=== PATIENT | male | born 1935 | race Caucasian/White ===

== ENCOUNTER → 2016-09-06 | Outpatient (CLI) | payer MEDICARE ==
[~2016-09-06] MED LIST: ADVICOR; AMOXICILLIN 8751 TAB PO; ANTIVERT 25MG25 MG PO; ASPI325T6 PO; ASPIR-LOW81 MG PO; ASPIRIN E.C. 8181 MG PO; ASTELIN137 MCG/AC NS; BETAPACE 80MG80 MG PO; BREO IH; BROVANA15 MCG/2 M IH; CLARITIN 1010 MG/TAB PO; CLEOCIN HCL300 MG PO; DIOVAN80 M1 PO; DOXYCYCLINE 10100 MG PO; DULERA1 AR1 IH; EPA FISH OIL1000 MG PO; FERROUS SU325 MG/TAB PO; IRON TABLETS325 MG PO; LASIX 40MG TABL40 MG PO; LEVAQUIN 750MG750 M1 PO; LIPOFLAVONOID1 GEL TP; LISINOPRIL5 MG PO; MECLIZINE25 MG PO; MURO-128 5% OP3.5 GM OP; NIACIN500 M3 PO; NORCO 325 MG-7.1 TAB PO; NORVASC 5MG5 MG/TAB PO; OMEPRAZOLE20 MG PO; OXYGEN IH; PREDNISONE20 MG PO; PRILOSEC 20MG20 MG PO; RANITIDINE HCL150 MG PO; RANITIDINE HYD150 MG PO; REFRESH 1 ML1 ML OU; REQUIP0.25 MG PO; ROXICODONE 55 MG/TAB PO; RT SPIRIVA18 MCG IH; SPIRIVA18 MCG IH; ST. JOSEPH81 M2 PO; SYSTANE LUBRICAN5 ML OU; VENTOLIN0.09 MG IH; ZANTAC 150MG T150 MG PO; ZESTRIL 5MG5 MG PO; ZETIA10 MG PO; ZOCOR 20MG20 MG PO; [UNRECOGNIZED DRUG - OTHER] PO
== END ==
LOC: COL.VAS 08-17 12:30
DX: I08.0 Rheumatic disorders of both mitral and aortic valves (principal); R94.39 Abnormal result of other cardiovascular function study; R06.02 Shortness of breath

== ENCOUNTER 2017-06-15 05:34 | Observation (INO) | payer MEDICARE ==
[~2017-06-15] VITALS: Ht 177.8 cm; Wt 108.8 kg
[2017-06-15] VITALS (13 sets, daily range): BP systolic 118–168; BP diastolic 60–89; PULSE 58–75; TEMP 97.6–98.6
[2017-06-15] MEDS ORDERED: PRILOSEC 20MG20 MG PO (05:54)
[2017-06-15] MEDS ORDERED: LASIX 20MG TABL20 MG PO (05:54)
[2017-06-15] MEDS ORDERED: INCRUSE EL62.5 MCG/A IH (05:56)
[2017-06-15] MEDS ORDERED: NATURAL IRON65 MG PO (05:59)
[2017-06-15] MEDS ORDERED: VITAMIN FLUSH-F1 CAP PO (06:30)
[2017-06-15] MEDS ORDERED: REFRESH TEARS 330 ML OP (07:00)
[2017-06-15 07:24] LABS: CALCIUM 8.5 mg/dL (8.4-10.2); CREATININE, serum 0.96 mg/dL (0.66-1.25); POTASSIUM 4.1 mmol/L (3.4-5.0)
[2017-06-16 01:41] VITALS: BP 104/43; PULSE 67; TEMP 98.2
[2017-06-16 04:36] VITALS: BP 119/65; PULSE 71; TEMP 98.4
[2017-06-16 07:12] LABS: BASO # 0.1 (0.0-0.2); BASO % 0.4 % (0.0-2.0); EOS # 0.2 (0.0-0.7); EOS % 1.7 % (0-4.0); GRAN # 9.2 (1.4-6.5); GRAN % 82.2 % (42.2-75.2); HEMATOCRIT 39.9 % (42.0-52.0); HEMOGLOBIN 12.8 g/dl (13.5-18.0); LYMPH # 0.7 (1.2-3.4); LYMPH % 6.5 % (20.0-51.0); MEAN CELL VOLUME 98 fl (80.0-100.0); MEAN CORPUSCULAR HEMOGLOBIN 31 pg (27.0-31.0); MEAN CORPUSCULAR HGB CONC 32 g/dl (33.0-37.0); MEAN PLATELET VOLUME 11.6 fl (7.4-10.4); MONO % 8.8 % (1.7-9.3); PLATELET COUNT 142 K/mm3 (130-400); RED BLOOD COUNT 4.08 M/mm3 (4.20-5.60); REDCELL DISTRIBUTION WIDTH-CV 13.1 % (11.5-14.5); WHITE BLOOD COUNT 11.2 K/mm3 (4.8-10.8)
[2017-06-16 10:26] VITALS: BP 145/73; PULSE 71; TEMP 98.4
[2017-06-16 13:23] VITALS: BP 132/63; PULSE 66; TEMP 97.4
[2017-06-16 18:15] VITALS: BP 134/69; PULSE 73; TEMP 98
[2017-06-16 21:05] VITALS: BP 139/66; PULSE 67; TEMP 98.3
[2017-06-17 02:31] VITALS: BP 137/76; PULSE 73; TEMP 98.2
[2017-06-17 09:21] VITALS: BP 188/96; PULSE 78; TEMP 96.9
== END 2017-06-17 13:47 | disposition home or self-care (01) ==
LOC: SDCO 05:34 → SURG 09:52 → SDCO 06-16 13:36 → SURG 06-16 13:37
PROVIDERS: Urology
DX: C61 Malignant neoplasm of prostate (principal); I25.10 Atherosclerotic heart disease of native coronary artery without angina pectoris; I11.0 Hypertensive heart disease with heart failure; Z95.1 Presence of aortocoronary bypass graft; J44.9 Chronic obstructive pulmonary disease, unspecified; I50.9 Heart failure, unspecified; I08.0 Rheumatic disorders of both mitral and aortic valves; Z85.9 Personal history of malignant neoplasm, unspecified; Z87.891 Personal history of nicotine dependence; K21.9 Gastro-esophageal reflux disease without esophagitis; M19.90 Unspecified osteoarthritis, unspecified site; Z80.3 Family history of malignant neoplasm of breast; Z98.85 Transplanted organ removal status; Z80.9 Family history of malignant neoplasm, unspecified; H81.09 Meniere's disease, unspecified ear; Z96.1 Presence of intraocular lens; Z96.659 Presence of unspecified artificial knee joint; Z68.31 Body mass index [BMI] 31.0-31.9, adult; Z87.440 Personal history of urinary (tract) infections
CPT/HCPCS: OP; G0378; J0690; J2250; J2704; J2765; J7030

== ENCOUNTER 2018-04-03 12:56 | Outpatient (CLI) | payer MEDICARE ==
[~2018-04-03] VITALS: Ht 177.8 cm; Wt 94.9 kg
[~2018-04-03 12:56] MED LIST changes: +ATROVENT I0.2 MG/1 M IH; +DOXYCYCLINE HY100 MG PO; +INCRUSE EL62.5 MCG/A IH; +LASIX 20MG TABL20 MG PO; +LASIX 80MG TABL80 MG PO; +MEDROL 4MG DOSPA4 MG PO; +MUCINEX 60600 MG/TA1 PO; +NATURAL IRON65 MG PO; +REFRESH TEARS 330 ML OP; +VITAMIN FLUSH-F1 CAP PO
[2018-04-03] MEDS ORDERED: LASIX 20MG TABL20 MG PO (13:31)
[2018-04-03] MEDS ORDERED: LASIX 40MG TABL40 MG PO (13:31)
[2018-04-03 14:03] VITALS: BP 155/82; PULSE 83; TEMP 98
[2018-04-03 14:14] LABS: HEMOGLOBIN 12.3 g/dl (13.5-18.0); MEAN CELL VOLUME 97 fl (80.0-100.0); MEAN CORPUSCULAR HEMOGLOBIN 31 pg (27.0-31.0); MEAN CORPUSCULAR HGB CONC 32 g/dl (33.0-37.0); PLATELET COUNT 199 K/mm3 (130-400); RED BLOOD COUNT 4.03 M/mm3 (4.20-5.60); REDCELL DISTRIBUTION WIDTH-CV 13.8 % (11.5-14.5)
[2018-04-03 14:19] LABS: PROTHROMBIN TIME 11.2 SECONDS (9.7-12.8)
== END 2018-04-03 17:17 | disposition home or self-care (01) ==
LOC: COL.CAR 12:56
PROVIDERS: Internal Medicine Interventional Cardiology
DX: R55 Syncope and collapse (principal); R07.89 Other chest pain; R42 Dizziness and giddiness; R60.0 Localized edema; I48.0 Paroxysmal atrial fibrillation; J44.9 Chronic obstructive pulmonary disease, unspecified; I25.10 Atherosclerotic heart disease of native coronary artery without angina pectoris; Z88.8 Allergy status to other drugs, medicaments and biological substances; Z88.6 Allergy status to analgesic agent; Z88.1 Allergy status to other antibiotic agents; Z91.040 Latex allergy status; Z91.010 Allergy to peanuts; Z79.82 Long term (current) use of aspirin; Z95.1 Presence of aortocoronary bypass graft; Z96.659 Presence of unspecified artificial knee joint; Z87.891 Personal history of nicotine dependence; Z82.49 Family history of ischemic heart disease and other diseases of the circulatory system

== ENCOUNTER → 2018-10-15 | Outpatient (CLI) | payer MEDICARE ==
[2018-10-15 10:10] LABS: ARTERIAL BLD GAS O2 SATURATION 94.6 % (92-100); ARTERIAL BLD GAS TCO2 CT 29.7; ARTERIAL BLOOD GAS BASE EXCESS 2.8 (-2-2); ARTERIAL BLOOD GAS HCO3 28.2 meq/L (22-26); ARTERIAL BLOOD GAS PCO2 46.4 mmHg (35-45); ARTERIAL BLOOD GAS PO2 72.3 mmHg (80-100)
== END ==
LOC: COL.PUL 09:27
PROVIDERS: Internal Medicine Pulmonary Disease
DX: J96.12 Chronic respiratory failure with hypercapnia (principal); Z87.891 Personal history of nicotine dependence

== ENCOUNTER 2019-01-25 11:53 | Day surgery (SDC) | payer MEDICARE ==
[~2019-01-25] VITALS: Ht 177.8 cm; Wt 95.4 kg
[2019-01-25] VITALS (10 sets, daily range): BP systolic 103–143; BP diastolic 50–79; PULSE 85–107; TEMP 97.3–98.2
[~2019-01-25 11:53] MED LIST changes: -ATROVENT I0.2 MG/1 M IH; +IPRATROPIUM BROM3 M1 IH; +IRON 27 MG PO
[2019-01-25 13:12] LABS: CALCIUM 8.5 mg/dL (8.4-10.2); CREATININE, serum 1.39 (0.66-1.25); POTASSIUM 4.5 mmol/L (3.4-5.0)
[2019-01-25] MEDS ORDERED: LIPITOR20 MG PO (13:42)
[2019-01-25] MEDS ORDERED: FLORINEF ACETA0.1 MG PO (13:44)
[2019-01-25] MEDS ORDERED: ALDACTONE 25MG25 M1 PO (13:44)
[2019-01-25] MEDS ORDERED: PROAMATINE 5MG T5 MG PO (13:46)
[2019-01-25] MEDS ORDERED: FLONASEALLERGY NS (13:55)
[2019-01-25] MEDS ORDERED: REFRESH OPTIVE10 M2 OU (13:56)
--- NOTE | 2019-01-25 16:35 | NUR ---
PATIENT ARRIVED TO ROOM 346 VIA BED FROM PACU. PATIENT IS SLIGHTLY DROWSY FROM SURGERY, BUT IS OTHERWISE A&OX4. POST-OP VSS. 3-WAY PEARCE CATHETER TO DEPENDENT DRAINAGE WITH CBI INFUSING AT A SLOW TO MODERATE RATE, AND DRAINING LIGHT PINK URINE. 2+ PITTING-EDEMA TO BLE NOTED. SCD'S TO BLE. PATIENT TOLERATING SIPS AND CHIPS WITHOUT COMPLAINTS OF NAUSEA. PATIENT DENIES ANY PAIN AT THIS TIME. 02 AT 2L VIA NASAL CANNULA. FAMILY PRESENT AT THE BEDSIDE. PATIENT DENIES ANY OTHER NEEDS AT THIS TIME.
--- NOTE | 2019-01-25 17:05 | NUR ---
PATIENT TOLERATING CLEAR LIQUIDS. DIET ADVANCED TO GENERAL. POST-OP VITALS STABLE. CALL LIGHT WITHIN REACH.
--- NOTE | 2019-01-25 19:24 | NUR ---
REPORT GIVEN TO KUN BROWN.
--- NOTE | 2019-01-25 20:00 | NUR ---
Patient in bed, has huber with CBI at moderate rate. Noted dark pink urine in tubing. Denies pain at this time. Huber catheter care provided. HS meds given. Has home meds in medication room. SL to right hand without redness or swelling.
--- NOTE | 2019-01-25 21:00 | NUR ---
Order from Dr Yoon to use CPAP/BIPAP at HS.
--- NOTE | 2019-01-26 02:12 | NUR ---
PT HAS A TRILOGY AT HOME. DID NOT BRING IN WITH HIM TODAY. STATED SHE WILL BRING IT IN FOR HIM TO USE ON 01/26/19. PT IN USING BIPAP FOR THE MEAN TIME. NO SETTINGS KNOWN. PT IS RAFIA BIPAP FINE AND SLEEPING COMFORTABLY. NO DISTRESS IS NOTED AT THIS TIME. WILL CONTINUE TO MONITOR TO ASSESS PT RAFIA WELL.
[2019-01-26 02:57] VITALS: BP 102/62; PULSE 77; TEMP 97.3
--- NOTE | 2019-01-26 06:00 | NUR ---
Patient has rested well with BiPap on. Urine pink tinged with CBI at moderate rate.
[2019-01-26 08:08] VITALS: BP 106/59; PULSE 91; TEMP 98.3
--- NOTE | 2019-01-26 08:49 | NUR ---
Patient resting in bed. No complaints of pain. He had breakfast & tolerated well, denies nausea. Cat to DD, Cbi to slow drip. [place] tinged output. Scds ble. Will rajani.
--- NOTE | 2019-01-26 10:40 | NUR ---
Visited and listened to the patient and provided spirtual care.
[2019-01-26 11:10] VITALS: BP 108/61; PULSE 88; TEMP 98.6
--- NOTE | 2019-01-26 14:56 | NUR ---
Patient family at bedside visisting, He denies needs. He did well with lunch. He was up to the bathroom, passing flatus, no BM
[2019-01-26 15:10] VITALS: BP 129/66; PULSE 87; TEMP 98.2
--- NOTE | 2019-01-26 16:35 | NUR ---
Patient denies needs, reported off to Domitila who will resume care
--- NOTE | 2019-01-26 16:39 | NUR ---
Plan is to DC home if can with . Patient reports that the primary PCP is Dr. Galvan. Patient indicated that he is hard of hearing. Client has Zakiya and EMR contact at [phone] or [phone] Patient reports the use of CPAp, O2 and Trilogy with a heart loop. They use [facility] for RX and have no additonal concerns at this time.
[2019-01-26 19:14] VITALS: BP 110/65; PULSE 88; TEMP 97.9
--- NOTE | 2019-01-26 22:11 | NUR ---
PT IN BED. URINE PINK, CLEAR. NO CLOTS SEEN. PT STATES HE HAS NO PAIN, JUST SOME MILD DISCOMFORT AT CATHETER ENTRY SITE.
[2019-01-27] VITALS (7 sets, daily range): BP systolic 102–119; BP diastolic 58–75; PULSE 77–121; TEMP 97.8–98.7
--- NOTE | 2019-01-27 14:57 | NUR ---
Dr David here to see patient.
[2019-01-28 04:00] VITALS: BP 123/72; PULSE 84; TEMP 97.9
[2019-01-28 07:26] VITALS: BP 96/62; PULSE 97; TEMP 98.1
--- NOTE | 2019-01-28 08:08 | NUR ---
Patient resting in bed. Breakfast ordered. RT saw patient this am. Patient did sit at edge of bed and have an epidose of feeling lightheaded. laid back down feeling okay at this time. Am medications given, including his proamatine that he take for orthostatic hypotention. New brief applied, patient having some incontinence of urine. He denies pain or sob this am. Will monitor.
[2019-01-28] MEDS ORDERED: DIGITEK0.125 MG PO (10:58)
--- NOTE | 2019-01-28 11:49 | NUR ---
& rounded. Discharge orders obtained. Dr. Ram sent script for Dig to [facility] pharmacy that is now closed. He ask me to sent one dose with patient to take tonight until he can get filled tmrw. We reviewed home medication list, last dose taken & medicatin safety. Patient going to keep record of his vital signs to take to follow up with cardiology. I reviewed diet, activity & sign of symptoms of when to call the doctor with patient. He and his deny questions or concerns, just thankful to get home. Patient wheeled out with all payever. His driving home
== END 2019-01-28 11:53 | disposition home or self-care (01) ==
LOC: SDCO 11:53 → SURG 16:35 → SDCO 01-27 16:35 → SURG 01-27 16:35 → SDCO 01-28 11:53
PROVIDERS: Nurse Anesthetist, Certified Registered
DX: C67.1 Malignant neoplasm of dome of bladder (principal); E78.5 Hyperlipidemia, unspecified; Z99.81 Dependence on supplemental oxygen; I25.2 Old myocardial infarction; I25.110 Atherosclerotic heart disease of native coronary artery with unstable angina pectoris; I10 Essential (primary) hypertension; Z95.1 Presence of aortocoronary bypass graft; I48.0 Paroxysmal atrial fibrillation; H81.09 Meniere's disease, unspecified ear; N40.0 Benign prostatic hyperplasia without lower urinary tract symptoms; J44.9 Chronic obstructive pulmonary disease, unspecified; I48.91 Unspecified atrial fibrillation; Z91.81 History of falling; Z79.899 Other long term (current) drug therapy; Z94.7 Corneal transplant status; Z90.3 Acquired absence of stomach [part of]; Z96.659 Presence of unspecified artificial knee joint; Z87.891 Personal history of nicotine dependence; Z95.818 Presence of other cardiac implants and grafts; Z88.2 Allergy status to sulfonamides; Z91.040 Latex allergy status; Z85.46 Personal history of malignant neoplasm of prostate; Z79.82 Long term (current) use of aspirin; K21.9 Gastro-esophageal reflux disease without esophagitis; M19.90 Unspecified osteoarthritis, unspecified site; Z90.79 Acquired absence of other genital organ(s); Z80.3 Family history of malignant neoplasm of breast; Z87.440 Personal history of urinary (tract) infections
CPT/HCPCS: OP; J1100; J1160; J2405; J2704; J3010; J7120

== ENCOUNTER 2019-02-03 18:56 | Emergency (ER) | payer MEDICARE ==
[~2019-02-03] VITALS: Ht 177.8 cm; Wt 93.2 kg
[~2019-02-03 18:56] MED LIST changes: +ALDACTONE 25MG25 M1 PO; +DIGITEK0.125 MG PO; +FLONASEALLERGY NS; +FLORINEF ACETA0.1 MG PO; +LIPITOR20 MG PO; +PROAMATINE 5MG T5 MG PO; +REFRESH OPTIVE10 M2 OU
[2019-02-03 18:59] VITALS: BP 158/84; TEMP 98.8
[2019-02-03 20:00] LABS: BASO # 0.1 (0.0-0.2); BASO % 0.7 % (0.0-2.0); EOS # 0.2 (0.0-0.7); EOS % 2.2 % (0-4.0); GRAN # 7.7 (1.4-6.5); GRAN % 77.7 % (42.2-75.2); HEMATOCRIT 37.4 % (42.0-52.0); HEMOGLOBIN 11.9 g/dl (13.5-18.0); LYMPH % 9.6 % (20.0-51.0); MEAN CELL VOLUME 96 fl (80.0-100.0); MEAN CORPUSCULAR HEMOGLOBIN 31 pg (27.0-31.0); MEAN CORPUSCULAR HGB CONC 32 g/dl (33.0-37.0); MONO # 0.9 (0.1-0.6); MONO % 9.2 % (1.7-9.3); PLATELET COUNT 205 K/mm3 (130-400); RED BLOOD COUNT 3.89 M/mm3 (4.20-5.60); REDCELL DISTRIBUTION WIDTH-CV 13.8 % (11.5-14.5)
[2019-02-03 20:03] LABS: COLLECTION METHOD CLEAN CATCH
[2019-02-03 20:08] LABS: ALANINE AMINOTRANSFERASE 28 U/L (21-72); ALBUMIN 3.3 gm/dL (3.5-5.0); ALKALINE PHOSPHATASE 144 U/L (50-136); ANION GAP 9 mmol/L (7-16); AST,SGOT 26 U/L (15-37); BILIRUBIN,TOTAL 0.4 mg/dL (0.0-1.0); BLOOD UREA NITROGEN 23 mg/dL (9-20); CALCIUM 8.2 mg/dL (8.4-10.2); CARBON DIOXIDE 32 mmol/L (22-30); CHLORIDE 98 mmol/L (98-107); CREATININE, serum 1.25 (0.66-1.25); GLUCOSE 123 mg/dL (74-106); POTASSIUM 4.1 mmol/L (3.4-5.0); SODIUM 139 mmol/L (137-145); TOTAL PROTEIN 6.3 gm/dL (6.4-8.2)
[2019-02-03 20:20] LABS: TROPONIN-I < 0.012 ng/mL (0.000-0.035)
[2019-02-03 20:24] LABS: PH 6 (5-8); SQUAMOUS EPITHELIAL 0-2 /hpf; URINE APPEARANCE Hazy; URINE BACTERIA None Seen /hpf; URINE BILIRUBIN Negative (NEGATIVE); URINE BLOOD 3+ (NEGATIVE); URINE COLOR Yellow; URINE GLUCOSE Negative (NEGATIVE); URINE KETONE Negative (NEGATIVE); URINE LEUKOCYTE ESTERASE Trace (NEGATIVE); URINE NITRATE Negative (NEGATIVE); URINE PROTEIN(semi-quant) Negative (NEGATIVE); URINE RBC >50 /hpf
[2019-02-03 20:35] LABS: DIGOXIN < 0.4 ng/mL (0.8-2.0)
[2019-02-03] MEDS ORDERED: MACROBID 1100 MG/CAP PO (20:48)
[2019-02-03 20:57] VITALS: PULSE 88
== END 2019-02-03 20:57 | disposition home or self-care (01) ==
LOC: COL.ER 18:56
PROVIDERS: Emergency Medicine
DX: R60.9 Edema, unspecified (principal); N39.0 Urinary tract infection, site not specified; E78.00 Pure hypercholesterolemia, unspecified; J44.9 Chronic obstructive pulmonary disease, unspecified; Z85.51 Personal history of malignant neoplasm of bladder; Z79.82 Long term (current) use of aspirin

== ENCOUNTER 2019-02-15 10:49 | Day surgery (SDC) | payer MEDICARE ==
[~2019-02-15] VITALS: Ht 177.8 cm; Wt 92.5 kg
[2019-02-15] VITALS (10 sets, daily range): BP systolic 105–136; BP diastolic 56–86; PULSE 74–101; TEMP 97.3–98.9
[~2019-02-15 10:49] MED LIST changes: +MACROBID 1100 MG/CAP PO
--- NOTE | 2019-02-15 11:51 | NUR ---
Initial visit; Patient requested prayer prior to his "Procedure." Tyler thanked Tank Builder for providing spiritual care especially prayer for rapid and thorough healing.
[2019-02-15] MEDS ORDERED: CLARITIN 1010 MG/TAB PO (12:01)
[2019-02-15] MEDS ORDERED: ANTIVERT 25MG25 MG PO (12:02)
--- NOTE | 2019-02-15 12:05 | NUR ---
TO RM AT 1106- CALL LIGHT IN REACH AT BEDSIDE.
--- NOTE | 2019-02-15 16:00 | NUR ---
CARIN met with the patient and his Laureen Pugh to discuss a discharge plan. The pt lives in [place] with Laureen Pugh. The pt has a cane and reports independence with ADLs. The pt's PCP is Dr. Galvan and the pt receives his medications from [facility]. The pt reports no difficulties obtaining his medications. The pt does not have advanced directives in the EMR but he reports they are completed. The pt plans to return home upon discharge. There are no additional needs at this time.
--- NOTE | 2019-02-15 20:30 | NUR ---
Patient in bed, is alert and oriented x4. Has CBI infusing at slow rate, urine is yellow with bloody streaks noted in tubing. Taking oral foods and fluids without problem. SL to left hand without redness or swelling.
[2019-02-16 00:36] VITALS: BP 106/57; PULSE 76; TEMP 98.7
--- NOTE | 2019-02-16 00:41 | NUR ---
Patient awakened for VS. Is alert, denies pain. No concerns offered. CBI infusing at slow rate, urine remains yellow with bloody streaking in tubing.
[2019-02-16 04:26] VITALS: BP 112/59; PULSE 84; TEMP 97.9
[2019-02-16 07:57] VITALS: BP 110/63; PULSE 84; TEMP 98.8
--- NOTE | 2019-02-16 09:30 | NUR ---
Patient alert and oriented, answers questions appropriately. See assessment. Cat catheter to dependent drainage, urine jason, no clots noted. CBI turned off at this time. No c/o pain or discomfort.
--- NOTE | 2019-02-16 10:30 | NUR ---
Cat catheter discontinued at this time, six bottle routine initiated.
[2019-02-16 11:27] VITALS: BP 110/63; PULSE 77; TEMP 98.9
--- NOTE | 2019-02-16 13:29 | NUR ---
Discharge instructions reviewed with patient and spouse, verbalized understanding. Discharged via wheelchair to auto/home with at 1325.
--- NOTE | 2019-02-16 14:02 | NUR ---
Before patient was discharged recycling specialist offered prayer while spouse was in room.
== END 2019-02-16 13:25 | disposition home or self-care (01) ==
LOC: SDCO 10:49 → SURG 14:45 → SDCO 02-16 13:25
DX: C67.1 Malignant neoplasm of dome of bladder (principal); Z79.899 Other long term (current) drug therapy; Z79.82 Long term (current) use of aspirin; Z95.1 Presence of aortocoronary bypass graft; Z95.5 Presence of coronary angioplasty implant and graft; Z94.7 Corneal transplant status; I08.0 Rheumatic disorders of both mitral and aortic valves; I25.2 Old myocardial infarction; I11.9 Hypertensive heart disease without heart failure; Z87.891 Personal history of nicotine dependence; H81.09 Meniere's disease, unspecified ear; M19.90 Unspecified osteoarthritis, unspecified site; J44.9 Chronic obstructive pulmonary disease, unspecified; Z85.46 Personal history of malignant neoplasm of prostate; I48.91 Unspecified atrial fibrillation; Z99.81 Dependence on supplemental oxygen; Z91.81 History of falling; Z90.79 Acquired absence of other genital organ(s); Z96.652 Presence of left artificial knee joint
CPT/HCPCS: OP; J0690; J2405; J2704; J3010; J7120

== ENCOUNTER 2019-04-03 13:59 | Day surgery (SDC) | payer MEDICARE ==
[~2019-04-03] VITALS: Ht 177.8 cm; Wt 95.5 kg
[2019-04-03] VITALS (11 sets, daily range): BP systolic 106–157; BP diastolic 50–86; PULSE 90–108; TEMP 97.6–98.3
[~2019-04-03 13:59] MED LIST changes: -MURO-128 5% OP3.5 GM OP; +MURO-128 5% OP3.5 GM OU; -REFRESH TEARS 330 ML OP; +REFRESH TEARS 330 ML OU
[2019-04-03] MEDS ORDERED: DIGITEK0.125 MG PO (15:04)
[2019-04-03] MEDS ORDERED: BREO ELLIPTA 21 EACH IH (15:10)
[2019-04-03] MEDS ORDERED: ZOCOR 20MG20 MG PO (15:11)
--- NOTE | 2019-04-03 19:31 | NUR ---
Patient to room 347 post op, report from pacu nurse. Vss on O2. Dinner ordered, he denies nausea. CBI to Mod rate with pink tinged output. Ivf to Lfa. family at bedside. Bedside report to Becca RN
--- NOTE | 2019-04-03 21:00 | NUR ---
Patient taking oral food and fluids well, IVF capped at this time. Patient has edema to bilateral lower legs, no new for patient. Has huber catheter to BSD with CBI infusing at moderate rate, urine is pink. Patient denies pain. Takes HS meds without problem.
[2019-04-04 04:00] VITALS: BP 114/62; PULSE 89; TEMP 98
--- NOTE | 2019-04-04 04:12 | NUR ---
CBI at slow rate, urine is pink/yellow.
[2019-04-04 07:30] VITALS: BP 106/68; PULSE 91; TEMP 98.1
--- NOTE | 2019-04-04 08:00 | NUR ---
Patient in bed resting. Alert and oriented x 3. Shift assessment complete. Cat to dependent drainage with clear peach colored urine present. CBI infusing at very slow rate, clamped at this time. Denies pain or further needs at this time.
--- NOTE | 2019-04-04 09:27 | NUR ---
Initial visit; Patient thanked Die Polisher for looking in on him and offering encouragement and prayer. Patient states he always likes a visit from Die Polisher.
--- NOTE | 2019-04-04 10:03 | NUR ---
SW met with patient to discuss discharge plan. Patient reports his doctor is going to discharge him home today. Patient lives independently at home with his . Patient reports he is independent with all ADLs and does not require any home health services. Patient uses a cane at home and a four wheeled walker outside of the home. Patient's PCP is Dr Galvan and he obtains prescriptions from [facility]. Patient reports he does have a DPOA-HC and Dr Galvan's office should have a copy. SW requested Dr Galvan's nurse fax a copy for the chart. CARIN does not anticipate any discharge needs.
[2019-04-04 11:35] VITALS: BP 133/71; PULSE 95; TEMP 97.8
--- NOTE | 2019-04-04 14:10 | NUR ---
Discharge education provided. Educated patient on activity restrictions and follow up appointment. Daughter and spouse at bedside. Encouraged patient to increase fluid intake to keep urine flowing freely. All questions answered. Denies pain or further needs at this time. INT to left wrist discontinued, catheter tip intact. Tolerated procedure well. Patient out by wheelchair with family.
== END 2019-04-04 14:05 | disposition home or self-care (01) ==
LOC: SDCO 13:59 → SURG 18:16 → SDCO 04-04 14:05
DX: C67.1 Malignant neoplasm of dome of bladder (principal); C67.4 Malignant neoplasm of posterior wall of bladder; Z85.46 Personal history of malignant neoplasm of prostate; R39.15 Urgency of urination; R35.0 Frequency of micturition; R35.1 Nocturia; J44.9 Chronic obstructive pulmonary disease, unspecified; I48.91 Unspecified atrial fibrillation; I10 Essential (primary) hypertension; I25.10 Atherosclerotic heart disease of native coronary artery without angina pectoris; H81.09 Meniere's disease, unspecified ear; Z99.81 Dependence on supplemental oxygen; Z95.1 Presence of aortocoronary bypass graft; Z90.79 Acquired absence of other genital organ(s); Z79.82 Long term (current) use of aspirin; Z79.899 Other long term (current) drug therapy; Z87.891 Personal history of nicotine dependence; Z88.2 Allergy status to sulfonamides; Z80.3 Family history of malignant neoplasm of breast; Z80.9 Family history of malignant neoplasm, unspecified; I11.0 Hypertensive heart disease with heart failure; I50.9 Heart failure, unspecified; K21.9 Gastro-esophageal reflux disease without esophagitis; G47.33 Obstructive sleep apnea (adult) (pediatric)
CPT/HCPCS: OP; J0690; J1100; J2405; J2704; J3010; J7030

== ENCOUNTER 2019-05-24 05:26 | Day surgery (SDC) | payer MEDICARE ==
[2019-05-24] VITALS (11 sets, daily range): BP systolic 110–159; BP diastolic 57–90; PULSE 73–98; TEMP 97.5–98.7
[~2019-05-24] VITALS: Ht 177.8 cm; Wt 89.0 kg
[~2019-05-24 05:26] MED LIST changes: +BREO ELLIPTA 21 EACH IH
--- NOTE | 2019-05-24 09:10 | NUR ---
PT TO ROOM 343 PER BED WITH REPORT FROM DORA TRISTAN PACU @[id number]. VSS, PEARCE TO DD WITH CBI RUNNING AT A SLOW RATE. URINE CLEAR AT THIS TIME. PT IS A/O X3,
--- NOTE | 2019-05-24 15:48 | NUR ---
CBI clamped urine unchanged peach color in huber bag. pt eating and drinking with no N/V reported or observed.
--- NOTE | 2019-05-24 22:21 | NUR ---
Patient voided x2 about 100ml each with light pink urine. Discharge instructions reviewed with patient and family. All belongings sent with patient. INT to left wrist pulled. Patient assisted to personal vehicle via wheelchair with family. All questions answered.
== END 2019-05-24 22:23 | disposition home or self-care (01) ==
LOC: SDCO 05:26 → SURG 09:00 → SDCO 22:23
DX: C67.1 Malignant neoplasm of dome of bladder (principal); Z85.46 Personal history of malignant neoplasm of prostate; I48.91 Unspecified atrial fibrillation; J44.9 Chronic obstructive pulmonary disease, unspecified; I25.10 Atherosclerotic heart disease of native coronary artery without angina pectoris; H81.09 Meniere's disease, unspecified ear; Z95.1 Presence of aortocoronary bypass graft; Z99.81 Dependence on supplemental oxygen; Z87.440 Personal history of urinary (tract) infections; N39.41 Urge incontinence; Z79.899 Other long term (current) drug therapy; Z87.891 Personal history of nicotine dependence; Z88.6 Allergy status to analgesic agent; Z88.1 Allergy status to other antibiotic agents; Z88.2 Allergy status to sulfonamides; Z96.642 Presence of left artificial hip joint; Z95.5 Presence of coronary angioplasty implant and graft; I11.0 Hypertensive heart disease with heart failure; I50.9 Heart failure, unspecified; K21.9 Gastro-esophageal reflux disease without esophagitis; G47.33 Obstructive sleep apnea (adult) (pediatric); M16.12 Unilateral primary osteoarthritis, left hip; I25.2 Old myocardial infarction; Z80.3 Family history of malignant neoplasm of breast; Z80.9 Family history of malignant neoplasm, unspecified; Z82.49 Family history of ischemic heart disease and other diseases of the circulatory system
CPT/HCPCS: OP; J0690; J1885; J2405; J2704

== ENCOUNTER 2019-07-26 11:54 | Day surgery (SDC) | payer MEDICARE ==
[~2019-07-26] VITALS: Ht 177.8 cm; Wt 93.2 kg
[2019-07-26] VITALS (9 sets, daily range): BP systolic 103–165; BP diastolic 65–90; PULSE 92–103; TEMP 97.9–98.3
--- NOTE | 2019-07-26 12:28 | NUR ---
Initial visit; Patient and his thanked Supervisor Of Communications for offering encouragement and prayer prior to his surgical procedure.
[2019-07-26] MEDS ORDERED: LIPO FLAVONOID PO (13:37)
--- NOTE | 2019-07-26 14:44 | NUR ---
Patient is resting and awaits surgery.
--- NOTE | 2019-07-26 18:00 | NUR ---
Patient alert and oriented, answers questions appropriately. See assessment. Cat catheter patent and draining clear silvestre urine. No clots noted. CBI infusing at slow rate. No c/o pain or discomfort.
[2019-07-27 00:48] VITALS: BP 111/56; PULSE 94; TEMP 98.8
--- NOTE | 2019-07-27 03:00 | NUR ---
PATIENT DOING WELL TONIGHT. CBI INFUSING SLOW. PEARCE OUTPUT CLEAR/PINK WITH SEDIMENT. 20 G TO R WRIST INFUSING SURGICAL FLUIDS. DENIES PAIN OR NEED FOR PAIN MEDICATION. TOOK SCHEDULED MEDICATIONS WITHOUT DIFFICULTY. NO FURTHER NEEDS AT THIS TIME. WILL CONTINUE TO MONITOR.
[2019-07-27 04:12] VITALS: BP 112/67; PULSE 91; TEMP 98.6
[2019-07-27 08:18] VITALS: BP 114/75; PULSE 91; TEMP 97.5
--- NOTE | 2019-07-27 09:30 | NUR ---
Pt resting in bed. He has had and tolerated a general breakfast. He is no complaints this morning. He is hoping to get to go home today. CBI running at slow rate with clear output. No needs at this time, will continue to monitor.
--- NOTE | 2019-07-27 11:53 | NUR ---
Dr Yoon has been in to see patient. Order to remove huber and start 6 bottle routine. Huber removed and patient educated on 6 bottle. He has had this procedure done before, so has no questions at this time. is present with no questions or concerns. Will continue to monitor
[2019-07-27 12:00] VITALS: BP 128/73; PULSE 88; TEMP 98.1
--- NOTE | 2019-07-27 15:00 | NUR ---
Pt has not been able to void very much. He stated that he has incontinence and has had since he had prostate surgery. He reports feeling as if he needs to void but cannot. He has done well with his water intake. Encouraged him to go for a walk and see if that helps. Dr Yoon called and a message was left.
--- NOTE | 2019-07-27 15:20 | NUR ---
Received call back from Dr Yoon
--- NOTE | 2019-07-27 16:00 | NUR ---
Pt has ambulated and was able to void larger amount. It was clear yellow and patient reports feeling better. Informed him that we would get one more cup and then if he does well, he could go.
--- NOTE | 2019-07-27 16:28 | NUR ---
Pt has been able to void again. He reports feeling better and does not have the urge to go. Discharge instructions reviewed with him and his . INT removed from his left hand and pt escorted out by ABBY
== END 2019-07-27 16:41 | disposition home or self-care (01) ==
LOC: SDCO 11:54 → SURG 16:44 → SDCO 07-27 16:41 → SURG 07-27 16:41
DX: C67.9 Malignant neoplasm of bladder, unspecified (principal); Z85.46 Personal history of malignant neoplasm of prostate; I48.91 Unspecified atrial fibrillation; J44.9 Chronic obstructive pulmonary disease, unspecified; N45.1 Epididymitis; I25.10 Atherosclerotic heart disease of native coronary artery without angina pectoris; N39.0 Urinary tract infection, site not specified; I25.2 Old myocardial infarction; I11.0 Hypertensive heart disease with heart failure; I50.9 Heart failure, unspecified; G47.33 Obstructive sleep apnea (adult) (pediatric); H81.09 Meniere's disease, unspecified ear; Z95.1 Presence of aortocoronary bypass graft; Z88.6 Allergy status to analgesic agent; Z88.2 Allergy status to sulfonamides; Z88.1 Allergy status to other antibiotic agents; Z88.8 Allergy status to other drugs, medicaments and biological substances; Z87.891 Personal history of nicotine dependence; Z80.3 Family history of malignant neoplasm of breast; Z82.49 Family history of ischemic heart disease and other diseases of the circulatory system; Z91.048 Other nonmedicinal substance allergy status; Z91.010 Allergy to peanuts; Z91.040 Latex allergy status; Z96.652 Presence of left artificial knee joint; Z79.51 Long term (current) use of inhaled steroids
CPT/HCPCS: OP; J0690; J1100; J2405; J2704; J3010; J7120

== ENCOUNTER 2019-08-23 17:00 | Inpatient (IN) | payer MEDICARE ==
[2019-08-23] VITALS (152 sets, daily range): BP systolic 145; BP diastolic 87; PULSE 103; TEMP 97.6; O2SAT 98–100
[~2019-08-23] VITALS: Ht 177.8 cm; Wt 91.0 kg
[~2019-08-23 17:00] MED LIST changes: +LIPO FLAVONOID PO
[2019-08-23 17:31] LABS: HEMATOCRIT 43.7 % (42.0-52.0); HEMOGLOBIN 12.9 g/dl (13.5-18.0); MEAN CELL VOLUME 101 fl (80.0-100.0); MEAN CORPUSCULAR HEMOGLOBIN 30 pg (27.0-31.0); MEAN CORPUSCULAR HGB CONC 30 g/dl (33.0-37.0); MEAN PLATELET VOLUME 11.1 fl (7.4-10.4); PLATELET COUNT 249 K/mm3 (130-400); RED BLOOD COUNT 4.35 M/mm3 (4.20-5.60); REDCELL DISTRIBUTION WIDTH-CV 13.9 % (11.5-14.5)
[2019-08-23 17:35] LABS: INR 0.9 (0.8-3.0); PROTHROMBIN TIME 10.9 SECONDS (9.7-12.8)
[2019-08-23 17:38] LABS: PARTIAL THROMBOPLASTIN TIME 28.3 SECONDS (26.0-37.0)
[2019-08-23 17:46] LABS: ARTERIAL BLD GAS O2 SATURATION 96.3 % (92-100); ARTERIAL BLD GAS TCO2 CT 44.2; ARTERIAL BLOOD GAS BASE EXCESS 7.9 (-2-2); ARTERIAL BLOOD GAS HCO3 40.7 meq/L (22-26); ARTERIAL BLOOD GAS PO2 94.5 mmHg (80-100)
[2019-08-23 17:47] LABS: ARTERIAL BLOOD GAS PCO2 114.8 mmHg (35-45); ARTERIAL BLOOD GAS pH 7.17 (7.35-7.45)
[2019-08-23 17:55] LABS: ALANINE AMINOTRANSFERASE 26 U/L (21-72); ALBUMIN 4.2 gm/dL (3.5-5.0); ALKALINE PHOSPHATASE 147 U/L (50-136); ANION GAP 8 mmol/L (7-16); AST,SGOT 30 U/L (15-37); BILIRUBIN,TOTAL 0.5 mg/dL (0.0-1.0); BLOOD UREA NITROGEN 33 mg/dL (9-20); CALCIUM 8.5 mg/dL (8.4-10.2); CARBON DIOXIDE 38 mmol/L (22-30); CHLORIDE 93 mmol/L (98-107); CREATININE, serum 1.39 (0.66-1.25); GLUCOSE 203 mg/dL (74-106); LIPASE 18 U/L (23-300); POTASSIUM 4.3 mmol/L (3.4-5.0); SODIUM 140 mmol/L (137-145); TOTAL PROTEIN 7.7 gm/dL (6.4-8.2)
[2019-08-23 18:07] LABS: TROPONIN-I < 0.012 ng/mL (0.000-0.035)
[2019-08-23 18:24] LABS: BAND 1 % (0-10); HYPOCHROMIA 2+; LYMPHOCYTE 4 % (20.0-51.0); NEUTROPHILS 94 % (42.0-75.2); PLATELET ESTIMATE NORMAL (NORMAL)
[2019-08-23 19:24] LABS: ARTERIAL BLD GAS O2 SATURATION 96.6 % (92-100); ARTERIAL BLD GAS TCO2 CT 40.7; ARTERIAL BLOOD GAS BASE EXCESS 7.1 (-2-2); ARTERIAL BLOOD GAS HCO3 37.9 meq/L (22-26); ARTERIAL BLOOD GAS PO2 89.2 mmHg (80-100); ARTERIAL BLOOD GAS pH 7.24 (7.35-7.45)
[2019-08-23 19:25] LABS: ARTERIAL BLOOD GAS PCO2 90.8 mmHg (35-45)
[2019-08-23 20:41] LABS: HEMATOCRIT 43.8 % (42.0-52.0); HEMOGLOBIN 12.8 g/dl (13.5-18.0); MEAN CELL VOLUME 101 fl (80.0-100.0); MEAN CORPUSCULAR HEMOGLOBIN 30 pg (27.0-31.0); MEAN CORPUSCULAR HGB CONC 29 g/dl (33.0-37.0); MEAN PLATELET VOLUME 11.8 fl (7.4-10.4); PLATELET COUNT 219 K/mm3 (130-400); RED BLOOD COUNT 4.32 M/mm3 (4.20-5.60)
[2019-08-23 21:03] LABS: BAND 2 % (0-10); HYPOCHROMIA 2+; LYMPHOCYTE 1 % (20.0-51.0); NEUTROPHILS 94 % (42.0-75.2); PLATELET ESTIMATE NORMAL (NORMAL)
[2019-08-23 21:41] LABS: ARTERIAL BLD GAS O2 SATURATION 94.6 % (92-100); ARTERIAL BLD GAS TCO2 CT 39.2; ARTERIAL BLOOD GAS BASE EXCESS 5.5 (-2-2); ARTERIAL BLOOD GAS HCO3 36.4 meq/L (22-26); ARTERIAL BLOOD GAS PO2 70.2 mmHg (80-100); ARTERIAL BLOOD GAS pH 7.22 (7.35-7.45)
[2019-08-23 21:42] LABS: ARTERIAL BLOOD GAS PCO2 91.4 mmHg (35-45)
[2019-08-23] MEDS ORDERED: IRON 27 MG PO (21:45)
[2019-08-23] MEDS ORDERED: ASPIRIN 81M81 MG/TA2 PO (21:47)
[2019-08-23] MEDS ORDERED: PRIL40 PO (21:51)
[2019-08-24] VITALS (855 sets, daily range): BP systolic 107–124; BP diastolic 60–86; PULSE 64–82; TEMP 97.6–98.2; O2SAT 80–100
[2019-08-24 05:55] LABS: ARTERIAL BLD GAS O2 SATURATION 96.4 % (92-100); ARTERIAL BLD GAS TCO2 CT 42.3; ARTERIAL BLOOD GAS PO2 85.7 mmHg (80-100); ARTERIAL BLOOD GAS pH 7.33 (7.35-7.45)
[2019-08-24 05:57] LABS: ARTERIAL BLOOD GAS PCO2 77.7 mmHg (35-45)
[2019-08-24 06:03] LABS: HEMATOCRIT 38.8 % (42.0-52.0); HEMOGLOBIN 11.4 g/dl (13.5-18.0); MEAN CELL VOLUME 100 fl (80.0-100.0); MEAN CORPUSCULAR HEMOGLOBIN 29 pg (27.0-31.0); MEAN CORPUSCULAR HGB CONC 29 g/dl (33.0-37.0); MEAN PLATELET VOLUME 11.2 fl (7.4-10.4); PLATELET COUNT 194 K/mm3 (130-400); RED BLOOD COUNT 3.88 M/mm3 (4.20-5.60); REDCELL DISTRIBUTION WIDTH-CV 13.7 % (11.5-14.5)
[2019-08-24 06:12] LABS: ALBUMIN 3.6 gm/dL (3.5-5.0); BILIRUBIN,TOTAL 0.4 mg/dL (0.0-1.0); CALCIUM 8.2 mg/dL (8.4-10.2); CREATININE, serum 1.14 (0.66-1.25); POTASSIUM 4.4 mmol/L (3.4-5.0); TOTAL PROTEIN 6.8 gm/dL (6.4-8.2)
--- NOTE | 2019-08-24 07:15 | NUR ---
Report received from Evert TRISTAN and care resumed.
--- NOTE | 2019-08-24 10:18 | NUR ---
Dr Gutierrez in to see pt at this time.
--- NOTE | 2019-08-24 10:19 | NUR ---
Dr Ram in to see pt at this time.
--- NOTE | 2019-08-24 15:25 | NUR ---
Plan: Plan to go to [facility] in [place], per a not sure whom. Assess: SW met with patient, Zakiya , and DTR in room. DTR Cristina Mitchell to be added as and emr contact at . Patient gave verbal auth to speak in front of guest and his to answer on his behalf. Patient reports that he has family in and his could stay with them while he is in rehab. Patient reports that they have identified this support if the drKenton wants them to go to [facility] for a month. Patient reports that he uses a walker, O2 continuos, 3 lts during the day and 2 lts at night with trilogy machine at night in case he is stops breathing, uses nebulizer 3x a day, and has a heart loop. Patient declines home health services. PCP is Dr. Galvan. with an [facility] September 09. Other PP following are Dr. Ram and Dr. Durand. Patient reports RX being obtained at [facility]. reports an she could transport. 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 Action: SW will fax initial referral to [facility], SW gave select referral information to family, educated on services, will continue to follow care for support and transfer of needs.
--- NOTE | 2019-08-24 19:00 | NUR ---
Received report from KUN Danielson.
--- NOTE | 2019-08-24 19:29 | NUR ---
Report given to Ebonie TRISTAN and care transfered.
[2019-08-25] VITALS (942 sets, daily range): BP systolic 102–141; BP diastolic 59–73; PULSE 60–77; TEMP 97.1–98.2; O2SAT 84–100
[2019-08-25 06:06] LABS: HEMOGLOBIN 11.5 g/dl (13.5-18.0); MEAN CELL VOLUME 101 fl (80.0-100.0); MEAN CORPUSCULAR HEMOGLOBIN 30 pg (27.0-31.0); MEAN CORPUSCULAR HGB CONC 30 g/dl (33.0-37.0); MEAN PLATELET VOLUME 11.3 fl (7.4-10.4); PLATELET COUNT 196 K/mm3 (130-400); RED BLOOD COUNT 3.88 M/mm3 (4.20-5.60); REDCELL DISTRIBUTION WIDTH-CV 13.7 % (11.5-14.5)
[2019-08-25 06:12] LABS: CALCIUM 8.4 mg/dL (8.4-10.2); CREATININE, serum 1.42 (0.66-1.25); POTASSIUM 4.1 mmol/L (3.4-5.0)
--- NOTE | 2019-08-25 07:15 | NUR ---
Report given to KUN Danielson.
--- NOTE | 2019-08-25 07:23 | NUR ---
Report received from Ebonie TRISTAN and care resumed.
[2019-08-25 08:49] LABS: COLLECTION METHOD CLEAN CATCH
[2019-08-25 08:58] LABS: PH 6 (5-8); SQUAMOUS EPITHELIAL 0-2 /hpf; URINE APPEARANCE Hazy; URINE BACTERIA Rare /hpf; URINE BILIRUBIN Negative (NEGATIVE); URINE BLOOD 2+ (NEGATIVE); URINE COLOR Yellow; URINE GLUCOSE Negative (NEGATIVE); URINE KETONE Negative (NEGATIVE); URINE LEUKOCYTE ESTERASE 3+ (NEGATIVE); URINE NITRATE Negative (NEGATIVE); URINE PROTEIN(semi-quant) Negative (NEGATIVE); URINE RBC 20-50 /hpf
[2019-08-25 09:18] LABS: BAND 3 % (0-10); LYMPHOCYTE 3 % (20.0-51.0); NEUTROPHILS 94 % (42.0-75.2); PLATELET ESTIMATE NORMAL (NORMAL)
[2019-08-25 09:35] LABS: ARTERIAL BLD GAS O2 SATURATION 93.9 % (92-100); ARTERIAL BLD GAS TCO2 CT 41.5; ARTERIAL BLOOD GAS BASE EXCESS 10.6 (-2-2); ARTERIAL BLOOD GAS HCO3 39.2 meq/L (22-26); ARTERIAL BLOOD GAS PO2 70.2 mmHg (80-100); ARTERIAL BLOOD GAS pH 7.34 (7.35-7.45)
--- NOTE | 2019-08-25 14:13 | NUR ---
Dr Miranda in to see pt at this time.
--- NOTE | 2019-08-25 16:30 | NUR ---
Report called to Rochelle TRISTAN on medical floor and pt taken to room 356 per wheelchair with chart and belongings on tele.
--- NOTE | 2019-08-25 16:40 | NUR ---
PATIENT ASSESSMENT COMPLETED. HE IS UP IN THE CHAIR WITH AT BEDSIDE. HE DENIES ANY PAIN OR SOB AT THIS TIME.
[2019-08-26] VITALS (7 sets, daily range): BP systolic 105–129; BP diastolic 50–67; PULSE 55–67; TEMP 96.8–98.2
--- NOTE | 2019-08-26 06:55 | NUR ---
PT WAS ON BiPAP ALL NIGHT. HE TOLERATED IT VERY WELL, STATING HE SLEPT MOST OF THE NIGHT. NO DYSPNEA. BLE WITH 2-3+ EDEMA.
[2019-08-26 08:14] LABS: HEMATOCRIT 40.4 % (42.0-52.0); HEMOGLOBIN 12.2 g/dl (13.5-18.0); MEAN CELL VOLUME 99 fl (80.0-100.0); MEAN CORPUSCULAR HEMOGLOBIN 30 pg (27.0-31.0); MEAN CORPUSCULAR HGB CONC 30 g/dl (33.0-37.0); MEAN PLATELET VOLUME 11.2 fl (7.4-10.4); PLATELET COUNT 205 K/mm3 (130-400); RED BLOOD COUNT 4.08 M/mm3 (4.20-5.60); REDCELL DISTRIBUTION WIDTH-CV 13.5 % (11.5-14.5)
[2019-08-26 08:27] LABS: CALCIUM 8.1 mg/dL (8.4-10.2); CREATININE, serum 1.48 (0.66-1.25); POTASSIUM 3.7 mmol/L (3.4-5.0)
--- NOTE | 2019-08-26 08:42 | NUR ---
Pt awake and alert, sitting up in bed eating breakfast, no C/O pain at this time, shift assessments complete, left Pt call light in reach, bed in lowest position.
[2019-08-26 09:16] LABS: BAND 5 % (0-10); LYMPHOCYTE 1 % (20.0-51.0); NEUTROPHILS 92 % (42.0-75.2); PLATELET ESTIMATE NORMAL (NORMAL)
[2019-08-26 12:19] LABS: ARTERIAL BLD GAS O2 SATURATION 93.3 % (92-100); ARTERIAL BLD GAS TCO2 CT 36.3; ARTERIAL BLOOD GAS BASE EXCESS 6.1 (-2-2); ARTERIAL BLOOD GAS HCO3 34.2 meq/L (22-26); ARTERIAL BLOOD GAS PO2 70.1 mmHg (80-100); ARTERIAL BLOOD GAS pH 7.33 (7.35-7.45)
--- NOTE | 2019-08-26 13:05 | NUR ---
Leoncio, at [facility], contacted CARIN and requested updates. CARIN faxed him updates. Leoncio reports that he will get authorization started with the patient's insurance. CARIN informed the clinical team. CARIN to continue to follow.
--- NOTE | 2019-08-26 19:52 | NUR ---
Pt rested in the room today, no C/O pain today, VS have remained stable.
--- NOTE | 2019-08-26 21:45 | NUR ---
Patient in bed, awake. Denies pain. Repositioned in bed. Denies further needs at this time. Will continue to monitor.
[2019-08-27 04:29] VITALS: BP 103/59; PULSE 104; TEMP 97.6
--- NOTE | 2019-08-27 06:20 | NUR ---
Patient in bed, awake. Labs drawn from central line per protocol. Denies pain. Denies further needs at this time. Will continue to monitor.
[2019-08-27 06:47] LABS: BASO % 0.1 % (0.0-2.0); EOS % 0.1 % (0-4.0); GRAN # 9.5 (1.4-6.5); GRAN % 79.8 % (42.2-75.2); HEMATOCRIT 39.9 % (42.0-52.0); HEMOGLOBIN 11.9 g/dl (13.5-18.0); LYMPH # 1.1 (1.2-3.4); LYMPH % 8.9 % (20.0-51.0); MEAN CELL VOLUME 99 fl (80.0-100.0); MEAN CORPUSCULAR HEMOGLOBIN 30 pg (27.0-31.0); MEAN CORPUSCULAR HGB CONC 30 g/dl (33.0-37.0); MEAN PLATELET VOLUME 11.4 fl (7.4-10.4); MONO # 1.3 (0.1-0.6); MONO % 10.7 % (1.7-9.3); PLATELET COUNT 184 K/mm3 (130-400); RED BLOOD COUNT 4.04 M/mm3 (4.20-5.60); REDCELL DISTRIBUTION WIDTH-CV 13.5 % (11.5-14.5)
[2019-08-27 06:55] LABS: CALCIUM 8.1 mg/dL (8.4-10.2); CREATININE, serum 1.39 (0.66-1.25); POTASSIUM 3.5 mmol/L (3.4-5.0)
--- NOTE | 2019-08-27 08:00 | NUR ---
SEE MORNING SHIFT ASSESSMENT.
[2019-08-27 08:42] VITALS: BP 103/57; PULSE 60; TEMP 98.2
[2019-08-27 10:00] LABS: ARTERIAL BLD GAS O2 SATURATION 96.2 % (92-100); ARTERIAL BLD GAS TCO2 CT 33.8; ARTERIAL BLOOD GAS BASE EXCESS 2.5 (-2-2); ARTERIAL BLOOD GAS HCO3 31.6 meq/L (22-26); ARTERIAL BLOOD GAS PO2 92.7 mmHg (80-100); ARTERIAL BLOOD GAS pH 7.26 (7.35-7.45)
[2019-08-27 10:01] LABS: ARTERIAL BLOOD GAS PCO2 71.9 mmHg (35-45)
--- NOTE | 2019-08-27 10:36 | NUR ---
Leoncio, at [facility], reports that he has submitted the patient's information to insurance for authorization. Leoncio requested updates. CARIN faxed those updates. Leoncio reports that he will be at the hospital on , 08/29, to meet with the patient. CARIN to inform the patient and his family and will continue to follow.
[2019-08-27 15:58] VITALS: BP 111/64; PULSE 58; TEMP 98
--- NOTE | 2019-08-27 19:16 | NUR ---
REPOT GIVEN TO KUN PENN.
[2019-08-27 20:00] VITALS: BP 131/67; PULSE 55; TEMP 98.1
--- NOTE | 2019-08-27 22:18 | NUR ---
Pt doing ok. Is resting in bed with Bipap on. Alert and oriented with VSS. Took pm meds with no difficulty. Denies pain or concerns at this time. Call light within reach, will continue to monitor
--- NOTE | 2019-08-27 23:16 | NUR ---
Pt sleeping in bed with bipap on. Call light within reach, will continue to monitor
[2019-08-28] VITALS (7 sets, daily range): BP systolic 106–126; BP diastolic 55–67; PULSE 51–71; TEMP 97.2–98.1
--- NOTE | 2019-08-28 00:03 | NUR ---
EKG SHOWED SINUS MEJIA WITH BBB
--- NOTE | 2019-08-28 05:05 | NUR ---
Pt slept well through the night with bipap on. No issues or concerns. No c/o pain or SOB. Call light within reach, will continue to monitor
[2019-08-28 06:03] LABS: ARTERIAL BLD GAS O2 SATURATION 96.8 % (92-100); ARTERIAL BLD GAS TCO2 CT 40.7; ARTERIAL BLOOD GAS BASE EXCESS 10.1 (-2-2); ARTERIAL BLOOD GAS HCO3 38.5 meq/L (22-26); ARTERIAL BLOOD GAS PO2 89.8 mmHg (80-100); ARTERIAL BLOOD GAS pH 7.35 (7.35-7.45)
[2019-08-28 06:07] LABS: ARTERIAL BLOOD GAS PCO2 71.6 mmHg (35-45)
[2019-08-28 08:31] LABS: EOS % 0.4 % (0-4.0); GRAN # 7.7 (1.4-6.5); GRAN % 76.4 % (42.2-75.2); HEMATOCRIT 40.7 % (42.0-52.0); HEMOGLOBIN 12.2 g/dl (13.5-18.0); LYMPH # 1.2 (1.2-3.4); LYMPH % 11.4 % (20.0-51.0); MEAN CELL VOLUME 99 fl (80.0-100.0); MEAN CORPUSCULAR HEMOGLOBIN 30 pg (27.0-31.0); MEAN CORPUSCULAR HGB CONC 30 g/dl (33.0-37.0); MEAN PLATELET VOLUME 11.5 fl (7.4-10.4); MONO # 1.2 (0.1-0.6); MONO % 11.6 % (1.7-9.3); PLATELET COUNT 183 K/mm3 (130-400); RED BLOOD COUNT 4.12 M/mm3 (4.20-5.60); REDCELL DISTRIBUTION WIDTH-CV 13.4 % (11.5-14.5)
[2019-08-28 08:41] LABS: CALCIUM 7.9 mg/dL (8.4-10.2); CREATININE, serum 1.12 (0.66-1.25); MAGNESIUM 2.5 mg/dL (1.6-2.3); POTASSIUM 3.5 mmol/L (3.4-5.0)
--- NOTE | 2019-08-28 09:00 | NUR ---
Assessment complete. Pt sitting up in bed, A&O x 3. Breath sounds coarse. Pt denies pain at this time. O2 at 2 L/min via NC with sats mid-90s. TLC to left SC without s/s of complications. No further needs reported. Call light in reach.
--- NOTE | 2019-08-28 16:00 | NUR ---
Patient O2 sats 80%. Tried several different fingers and O2 sats did not increase. Patient has complaints of SOB and wanting on bipap. Patient placed on bipap and RT to assess. No further complaints of SOB when bipap placed. No further needs expressed from patient. Call light within reach
--- NOTE | 2019-08-28 17:55 | NUR ---
Patient resting in bed with bipap on. No complaints of SOB or pain. Family at the bedside. VSS. IV CDI. MRSA precautions in place. No further needs expressed from patient. Call light within reach. Bed alarm on.
--- NOTE | 2019-08-28 20:00 | NUR ---
Received report from KUN Clayton. Assessment complete. at bedside. Denies any pain, SOB, or any other discomfort. Triple lumen cath intact, flushed, dressing CDI. On 2L NC, Bipap HS. Tele monitor in place, leads checked. Meds administered as ordered. Cat catheter in place draining clear yellow urine, secured to LL, bag at foot of bed. Contact precautions in place. Needs met. Call light within reach.
[2019-08-29 00:10] VITALS: BP 122/65; PULSE 54; TEMP 97.8
[2019-08-29 05:35] LABS: ARTERIAL BLD GAS O2 SATURATION 97.5 % (92-100); ARTERIAL BLD GAS TCO2 CT 40.7; ARTERIAL BLOOD GAS BASE EXCESS 9.4 (-2-2); ARTERIAL BLOOD GAS HCO3 38.4 meq/L (22-26); ARTERIAL BLOOD GAS PO2 100.2 mmHg (80-100); ARTERIAL BLOOD GAS pH 7.32 (7.35-7.45)
[2019-08-29 05:37] LABS: ARTERIAL BLOOD GAS PCO2 75.7 mmHg (35-45)
[2019-08-29 05:47] LABS: EOS % 0.4 % (0-4.0); GRAN # 6.5 (1.4-6.5); GRAN % 76.7 % (42.2-75.2); HEMATOCRIT 40.4 % (42.0-52.0); HEMOGLOBIN 12.1 g/dl (13.5-18.0); LYMPH # 1.1 (1.2-3.4); LYMPH % 12.6 % (20.0-51.0); MEAN CELL VOLUME 98 fl (80.0-100.0); MEAN CORPUSCULAR HEMOGLOBIN 29 pg (27.0-31.0); MEAN CORPUSCULAR HGB CONC 30 g/dl (33.0-37.0); MEAN PLATELET VOLUME 11.6 fl (7.4-10.4); MONO # 0.8 (0.1-0.6); MONO % 9.8 % (1.7-9.3); PLATELET COUNT 154 K/mm3 (130-400); RED BLOOD COUNT 4.11 M/mm3 (4.20-5.60); REDCELL DISTRIBUTION WIDTH-CV 13.2 % (11.5-14.5)
[2019-08-29 05:50] VITALS: BP 110/58; PULSE 56; TEMP 98.2
[2019-08-29 05:52] LABS: CALCIUM 7.9 mg/dL (8.4-10.2); CREATININE, serum 1.04 (0.66-1.25); POTASSIUM 3.5 mmol/L (3.4-5.0)
--- NOTE | 2019-08-29 05:52 | NUR ---
Pt uneventful during this shift. Call light within reach. Meds administered as ordered.
--- NOTE | 2019-08-29 06:55 | NUR ---
Report given to KUN Clayton and KUN Hermosillo.
--- NOTE | 2019-08-29 10:31 | NUR ---
Leoncio, at [facility], reports that they have clinically accepted the patient; but that the patient's insurance has denied him. Leoncio reports that the chief of planning or hospitalist can do a [id number]. #[phone] ref#[id number]. CARIN updated the clinical team and provided the pulmonolist with the [id number] phone number. The chief of planning contacted that number and he has an appointment with their doctor at 1100. Family has been updated. CARIN to continue to follow.
--- NOTE | 2019-08-29 11:02 | NUR ---
The value advisor, Dr. Flores, reports that he did the [id number] and that they are still denying [facility]. Dr. Flores is now recommending home health for the patient. SW updated the hospitalist and will update the family and continue to follow.
[2019-08-29 12:00] VITALS: BP 104/55; PULSE 58; TEMP 98
--- NOTE | 2019-08-29 15:59 | NUR ---
CARIN met with the patient and his , Laureen Pugh, to update. CARIN discussed possibly swing vs home health. The patient and his report that they would prefer to go home with home health. CARIN provided them with Medicare.gov's list of home health agencies that serve [place]. The patient and his chose [facility]. CARIN contacted and faxed a referral to [facility]. SW to continue to follow.
[2019-08-29 16:13] VITALS: BP 103/49; PULSE 60; TEMP 97.4
--- NOTE | 2019-08-29 18:24 | NUR ---
Patient resting in bed, at the bedside. A&Ox3. Denies pain and discomfort. PT [facility] Patient tolerated well. VSS 2L NC O2. Bipap at the bedside PRN IV CDI. Cat dependent drainage clear yellow urine. MRSA precautions in place. No further needs expressed from patient. Call light within reach
[2019-08-29 20:39] VITALS: BP 116/56; PULSE 65; TEMP 98.4
--- NOTE | 2019-08-29 21:15 | NUR ---
Patient resting in bed with BiPap on. Vital signs stable. Patient cental line dressing clean dry and intact, all lumens flushed, blood return noted in each. Cat present, urine is yellow and clear. Bilateral lower extremety edema noted at 3+. No signs of infection at this time, pateint has been afebrile this shift. No complaints of pain.
[2019-08-29 23:33] VITALS: BP 106/62; PULSE 54; TEMP 97.7
[2019-08-30 05:11] VITALS: BP 125/63; PULSE 55
[2019-08-30 06:08] LABS: EOS # 0.1 (0.0-0.7); EOS % 0.6 % (0-4.0); GRAN # 6.9 (1.4-6.5); GRAN % 75.7 % (42.2-75.2); HEMATOCRIT 39.9 % (42.0-52.0); LYMPH # 1.3 (1.2-3.4); LYMPH % 14.3 % (20.0-51.0); MEAN CELL VOLUME 98 fl (80.0-100.0); MEAN CORPUSCULAR HEMOGLOBIN 30 pg (27.0-31.0); MEAN CORPUSCULAR HGB CONC 30 g/dl (33.0-37.0); MEAN PLATELET VOLUME 12.2 fl (7.4-10.4); MONO # 0.8 (0.1-0.6); PLATELET COUNT 148 K/mm3 (130-400); RED BLOOD COUNT 4.07 M/mm3 (4.20-5.60); REDCELL DISTRIBUTION WIDTH-CV 13.3 % (11.5-14.5)
[2019-08-30 06:22] LABS: CALCIUM 8.1 mg/dL (8.4-10.2); CREATININE, serum 0.93 (0.66-1.25); POTASSIUM 3.5 mmol/L (3.4-5.0)
[2019-08-30 08:00] VITALS: BP 123/62; PULSE 59; TEMP 97.6
--- NOTE | 2019-08-30 09:35 | NUR ---
ASSESSMENT COMPLETED. PATIENT ALERT AND ORIENTED, SITTING UP QUIETLY IN BED.TOLERATED ASSESSMENT WELL. VSS. PEARCE IS PATENT AND DRAINING CLEAR YELLOW URINE. PATIENT HAD NO COMPLAINTS OF PAIN OR DISCOMFORT. FAMILY JOINED HIM AT BEDSIDE. NO FURTHER NEEDS WERE EXPRESSED. CALL LIGHT IS WITHIN REACH.
[2019-08-30 10:34] LABS: ARTERIAL BLD GAS O2 SATURATION 95.3 % (92-100); ARTERIAL BLOOD GAS BASE EXCESS 3.6 (-2-2); ARTERIAL BLOOD GAS HCO3 31.1 meq/L (22-26); ARTERIAL BLOOD GAS PCO2 60.4 mmHg (35-45); ARTERIAL BLOOD GAS pH 7.33 (7.35-7.45)
[2019-08-30 13:05] VITALS: BP 93/43; PULSE 60; TEMP 97.4
--- NOTE | 2019-08-30 14:59 | NUR ---
CARIN attended clinical rounds. The monogram and letter paster would like to monitor the patient for another day. CARIN updated Wanda at [facility]. Wanda reports that they are able to accept the patient for services. CARIN informed the patient's . CARIN also presented and explained the IM form to the patient's . The patient's verbalized understanding, signed, and she was provided a copy. CARIN to continue to follow.
[2019-08-30 17:33] VITALS: BP 125/63; PULSE 41; TEMP 98.7
--- NOTE | 2019-08-30 17:34 | NUR ---
Exsisting skin tear noted under huber security device. 2 cm x 2 cm circular, blanchable- located on left anterior thigh
[2019-08-30 20:38] VITALS: BP 128/66; PULSE 65; TEMP 98.1
--- NOTE | 2019-08-30 20:50 | NUR ---
Pt. sitting up in bed. Pt. is A&OX3, assessment complete. TLC to lt. chest patent. Pt. denies pain or other needs, call light within reach.
[2019-08-30 23:10] VITALS: BP 112/62; PULSE 55; TEMP 97.7
[2019-08-31 04:33] VITALS: BP 141/75; PULSE 52; TEMP 98.1
[2019-08-31 08:21] VITALS: BP 131/64; PULSE 58; TEMP 98.4
--- NOTE | 2019-08-31 08:53 | NUR ---
ASSESSMENT COMPLETED, TOLERATED WELL.PATIENT WATCHING TV IN BED. VSS. CENTRAL LINE DRESSING CD&I. PATIENT CLAIMS TO BE IN NO PAIN. PATIENT IS AWARE OF PLAN OF CARE. NO FURTHER NEEDS WERE EXPRESSED. CALL LIGHT WITHIN REACH.
[2019-08-31 10:44] LABS: ALBUMIN 2.8 gm/dL (3.5-5.0); BILIRUBIN,TOTAL 0.6 mg/dL (0.0-1.0); CALCIUM 8.1 mg/dL (8.4-10.2); CREATININE, serum 0.96 (0.66-1.25); POTASSIUM 3.5 mmol/L (3.4-5.0); TOTAL PROTEIN 5.5 gm/dL (6.4-8.2)
[2019-08-31 10:45] LABS: ARTERIAL BLD GAS O2 SATURATION 94.2 % (92-100); ARTERIAL BLD GAS TCO2 CT 31.5; ARTERIAL BLOOD GAS BASE EXCESS 2.7 (-2-2); ARTERIAL BLOOD GAS HCO3 29.7 meq/L (22-26); ARTERIAL BLOOD GAS PCO2 56.8 mmHg (35-45); ARTERIAL BLOOD GAS PO2 70.5 mmHg (80-100); ARTERIAL BLOOD GAS pH 7.34 (7.35-7.45)
[2019-08-31] MEDS ORDERED: PREDNISONE10 MG PO (13:19)
[2019-08-31] MEDS ORDERED: BETAPACE 80MG80 MG PO (13:21)
[2019-08-31] MEDS ORDERED: LASIX 40MG TABL40 MG PO (13:23)
[2019-08-31] MEDS ORDERED: DIAMOX 250MG250 MG PO (13:24)
--- NOTE | 2019-08-31 14:10 | NUR ---
SW contacted nurse to coordinate discharge. SW faxed discharge paperwork to [facility] as directed for home health care. SW also contacted [facility] to inform them of patients discharge.
--- NOTE | 2019-08-31 15:11 | NUR ---
TRIPLE LUMEN CATHETER REMOVED PER ORDERS. STERILE PROCEDURE FOLLOWED. PRESSURE HELD FO 10 MIN. NO SIGNS OR SYMPTOMS OF BLEEDING. NEW DRESSING PLACED.
--- NOTE | 2019-08-31 15:50 | NUR ---
[facility]IA WHEEL CHAIR.
== END 2019-08-31 15:58 | disposition home health service (06) | DRG 189 ==
LOC: COL.ER 17:00 → MEDICAL 19:04 → ICU 19:04 → MEDICAL 08-25 16:10
PROVIDERS: Emergency Medicine; Hospitalist; Internal Medicine Critical Care Medicine; Nurse Practitioner Family; Physician Assistant; ADMIT Student in an Organized Health Care Education/Training Program
PROC: 02HV33Z Insertion of Infusion Device into Superior Vena Cava, Percutaneous Approach (ICD-10-PCS; principal; 2019-08-23)
PROC: 5A09457 Assistance with Respiratory Ventilation, 24-96 Consecutive Hours, Continuous Positive Airway Pressure (ICD-10-PCS; 2019-08-23)
DX: J96.21 Acute and chronic respiratory failure with hypoxia (principal); N17.9 Acute kidney failure, unspecified; J44.1 Chronic obstructive pulmonary disease with (acute) exacerbation; J96.22 Acute and chronic respiratory failure with hypercapnia; I25.10 Atherosclerotic heart disease of native coronary artery without angina pectoris; K21.9 Gastro-esophageal reflux disease without esophagitis; E78.5 Hyperlipidemia, unspecified; Z66 Do not resuscitate; I48.0 Paroxysmal atrial fibrillation; D72.829 Elevated white blood cell count, unspecified; I50.9 Heart failure, unspecified; R82.81 Pyuria; R73.9 Hyperglycemia, unspecified; I95.1 Orthostatic hypotension; Z95.1 Presence of aortocoronary bypass graft; Z79.82 Long term (current) use of aspirin; Z87.891 Personal history of nicotine dependence; Z95.818 Presence of other cardiac implants and grafts
CPT/HCPCS: 99223-AI; 99231-AI; 99233-AI; 99239; A4314; J0456; J0692; J1644; J1940; J2543; J2920; J2930; J7050; J7512; Q9967

== ENCOUNTER 2019-09-07 18:51 | Inpatient (IN) | payer MEDICARE ==
[~2019-09-07] VITALS: Ht 177.8 cm; Wt 93.0 kg
[~2019-09-07 18:51] MED LIST changes: +ASPIRIN 81M81 MG/TA2 PO; +DIAMOX 250MG250 MG PO; +PREDNISONE10 MG PO; +PRIL40 PO
[2019-09-07 19:25] LABS: HEMOGLOBIN 13.1 g/dl (13.5-18.0); MEAN CELL VOLUME 101 fl (80.0-100.0); MEAN CORPUSCULAR HEMOGLOBIN 30 pg (27.0-31.0); MEAN CORPUSCULAR HGB CONC 30 g/dl (33.0-37.0); MEAN PLATELET VOLUME 12.2 fl (7.4-10.4); PLATELET COUNT 188 K/mm3 (130-400); RED BLOOD COUNT 4.37 M/mm3 (4.20-5.60); REDCELL DISTRIBUTION WIDTH-CV 14.3 % (11.5-14.5)
[2019-09-07 19:33] LABS: ALBUMIN 3.6 gm/dL (3.5-5.0); BILIRUBIN,TOTAL 0.5 mg/dL (0.0-1.0); CALCIUM 8.2 mg/dL (8.4-10.2); CREATININE, serum 1.87 (0.66-1.25); POTASSIUM 4.1 mmol/L (3.4-5.0); TOTAL PROTEIN 6.6 gm/dL (6.4-8.2)
[2019-09-07 19:37] LABS: ARTERIAL BLD GAS O2 SATURATION 95.4 % (92-100); ARTERIAL BLD GAS TCO2 CT 29.2; ARTERIAL BLOOD GAS HCO3 26.9 meq/L (22-26); ARTERIAL BLOOD GAS PO2 76.2 mmHg (80-100)
[2019-09-07 19:38] LABS: ARTERIAL BLOOD GAS PCO2 73.8 mmHg (35-45); ARTERIAL BLOOD GAS pH 7.18 (7.35-7.45)
[2019-09-07 20:13] LABS: TROPONIN-I 0.025 ng/mL (0.000-0.035)
[2019-09-07 21:20] LABS: BAND 3 % (0-10); LYMPHOCYTE 6 % (20.0-51.0); NEUTROPHILS 79 % (42.0-75.2); PLATELET ESTIMATE NORMAL (NORMAL)
--- NOTE | 2019-09-07 22:10 | NUR ---
Recieved report from Kristina in ED at 2109. Patient arrived in ICU at 2204 via stretcher with O2 on. GENETICIST reports they removed the BIPAP for transport because patient was tolerating NC well and was trying to converse with family. able to answer questions about patient's past medical history since he was placed back on the BIPAP upon arrival to unit. Patient pleasant and cooperative, denies any pain or discomfort
[2019-09-07 22:26] VITALS: O2SAT 82
[2019-09-07] MEDS ORDERED: PEPCID40 MG PO (23:02)
[2019-09-07 23:04] VITALS: BP 105/59; PULSE 60; TEMP 97.6
--- NOTE | 2019-09-07 23:10 | NUR ---
This SENIOR CORPORATE ACCOUNTANT arrived to pt's room to draw ABG. RN reports BiPAP settings changed to 18/[address] Ferrari per pulmonary's recommendation approx one hour ago.
[2019-09-07 23:25] LABS: ARTERIAL BLD GAS O2 SATURATION 97.7 % (92-100); ARTERIAL BLD GAS TCO2 CT 30.5; ARTERIAL BLOOD GAS BASE EXCESS -0.3 (-2-2); ARTERIAL BLOOD GAS HCO3 28.4 meq/L (22-26); ARTERIAL BLOOD GAS PO2 99.5 mmHg (80-100); ARTERIAL BLOOD GAS pH 7.25 (7.35-7.45)
[2019-09-07 23:26] LABS: ARTERIAL BLOOD GAS PCO2 66.8 mmHg (35-45)
[2019-09-07 23:29] VITALS: BP 115/64; PULSE 60
[2019-09-08] VITALS (407 sets, daily range): BP systolic 93–115; BP diastolic 50–65; PULSE 57–66; TEMP 97.7–98.4; O2SAT 73–100
[2019-09-08 00:19] LABS: COLLECTION METHOD CLEAN CATCH
[2019-09-08 00:32] LABS: PH 5 (5-8); SQUAMOUS EPITHELIAL None Seen /hpf; URINE APPEARANCE Turbid; URINE BACTERIA None Seen /hpf; URINE BILIRUBIN Negative (NEGATIVE); URINE BLOOD 2+ (NEGATIVE); URINE COLOR Yellow; URINE GLUCOSE Negative (NEGATIVE); URINE KETONE Negative (NEGATIVE); URINE LEUKOCYTE ESTERASE 3+ (NEGATIVE); URINE NITRATE Negative (NEGATIVE); URINE PROTEIN(semi-quant) 1+ (NEGATIVE); URINE RBC 20-50 /hpf; URINE UROBILINOGEN Negative (NEGATIVE)
--- NOTE | 2019-09-08 00:47 | NUR ---
Cat catheter placed per order from Dr. Ferrari. Sample sent to lab as well. Patient tolerated well, successful with 1 attempt, Cat draining to gravity, light yellow but very cloudy urine.
[2019-09-08 05:14] LABS: ARTERIAL BLD GAS O2 SATURATION 95.6 % (92-100); ARTERIAL BLD GAS TCO2 CT 33.3; ARTERIAL BLOOD GAS BASE EXCESS 3.1 (-2-2); ARTERIAL BLOOD GAS HCO3 31.3 meq/L (22-26); ARTERIAL BLOOD GAS PO2 73.4 mmHg (80-100); ARTERIAL BLOOD GAS pH 7.29 (7.35-7.45)
[2019-09-08 05:15] LABS: ARTERIAL BLOOD GAS PCO2 66.1 mmHg (35-45)
--- NOTE | 2019-09-08 05:24 | NUR ---
This DIP TUBE ASSEMBLER MACHINE called critical value PaCO2 to Dr. Ferrari. HCo3 / BE are increasing to compensate. Requested to change BiPAP settings. Received recommendation to call Dr. Gutierrez; did this without answer. Pt's tidal volumes are low with current settings. Titrating BiPAP settings at this time with regard to pt's toleration. Will start with 22/10 per prior toleration for 2+ hours last evening when BiPAP was initiated in ER.
--- NOTE | 2019-09-08 06:34 | NUR ---
Last ABG from prior admission: 08/31/2019 on 2 LPM pH 7.34 PaCO2 56.8 PaO2 70.5 HCO3 29.7 BE 2.7 SaO2 94.2
--- NOTE | 2019-09-08 07:35 | NUR ---
Vancomycin Initial Dosing Pharmacy Note Ordering provider: Ernesto Ferrari MD Indication/duration: sepsis, unknown source, 7 days Relevant comorbidities: COPD, h/o aspiration pna LABS: SCr 1.87, CrCl~31, GFR 34 Recommendation: Will continue Vancomcyin 1.5 gm IV q24h. Pharmacy will continue to monitor and check a Vancomycin trough prior to 4th total dose on 09/10/19. Loading dose: 1.25 grams Maintenance dose: 1.5 grams every 24 hours Trough goal: 15-20 ug/mL
[2019-09-08 07:49] LABS: BASO % 0.3 % (0.0-2.0); EOS % 0.3 % (0-4.0); GRAN # 12.2 (1.4-6.5); GRAN % 85.1 % (42.2-75.2); HEMATOCRIT 40.2 % (42.0-52.0); LYMPH # 0.6 (1.2-3.4); LYMPH % 4.2 % (20.0-51.0); MEAN CELL VOLUME 98 fl (80.0-100.0); MEAN CORPUSCULAR HEMOGLOBIN 29 pg (27.0-31.0); MEAN CORPUSCULAR HGB CONC 30 g/dl (33.0-37.0); MEAN PLATELET VOLUME 12.1 fl (7.4-10.4); MONO # 1.4 (0.1-0.6); MONO % 9.8 % (1.7-9.3); PLATELET COUNT 144 K/mm3 (130-400); RED BLOOD COUNT 4.09 M/mm3 (4.20-5.60); REDCELL DISTRIBUTION WIDTH-CV 14.2 % (11.5-14.5)
[2019-09-08 08:01] LABS: CALCIUM 7.9 mg/dL (8.4-10.2); CREATININE, serum 1.46 (0.66-1.25); POTASSIUM 3.8 mmol/L (3.4-5.0)
[2019-09-08 08:13] LABS: TROPONIN-I 0.016 ng/mL (0.000-0.035)
--- NOTE | 2019-09-08 08:15 | NUR ---
PT AWAKE, ALERT, AND ORIENTED. PATIENT SWITCHED FROM BIPAP TO NC IN ORDER TO EAT BREAKFAST. PT PLACED ON 2L NC. O2 SAT 97% ON 2L NC
--- NOTE | 2019-09-08 09:27 | NUR ---
Patient lives at home with his (Laureen Renae phone: [phone] and [phone]) in [place], [place] and plans to discharge back home depending on recovery. 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 Patient uses hearing aids for hearing assistance and receives assistance for care from his and other family members as needed. Patient's primary care physician is Puja Galvan and his engine cleaner is Ayaan Camarena. Patient has advance directives for healthcare completed and is also a DNR. professional services consultant will follow as needed.
--- NOTE | 2019-09-08 11:29 | NUR ---
ASSISTED PATIENT TO BEDSIDE COMMODE AND RECLINER CHAIR USING WALKER AND PHYSICAL THERAPY. PT STANDBY ASSIST. PT TOLERATED WELL.
--- NOTE | 2019-09-08 13:00 | NUR ---
ASSISTED PATIENT BACK TO BED WITH WALKER. PATIENT TOLERATED WELL. PATIENT PLACED BACK ON BIPAP PATIENT REQUESTED TO TAKE A NAP.
[2019-09-08 16:52] LABS: ARTERIAL BLD GAS O2 SATURATION 96.9 % (92-100); ARTERIAL BLD GAS TCO2 CT 30.1; ARTERIAL BLOOD GAS BASE EXCESS 0.5 (-2-2); ARTERIAL BLOOD GAS HCO3 28.3 meq/L (22-26); ARTERIAL BLOOD GAS PCO2 60.3 mmHg (35-45); ARTERIAL BLOOD GAS PO2 87.8 mmHg (80-100); ARTERIAL BLOOD GAS pH 7.29 (7.35-7.45)
--- NOTE | 2019-09-08 16:58 | NUR ---
BIPAP TAKEN OFF, PT PLACED ON 2L NC. PT AWAKE, ALERT, AND ORIENTED. FAMILY AT BEDSIDE.
--- NOTE | 2019-09-08 19:30 | NUR ---
Resting in bed at this time. Assisted with josselin-care and repositioning. Denies any pain or concerns at this time. Reminded patient that when ready for bed the nasal cannula will be switched for the Bipap; patient in agreement.
[2019-09-09] VITALS (918 sets, daily range): BP systolic 95–137; BP diastolic 56–77; PULSE 55–66; TEMP 97.4–98.5; O2SAT 70–100
--- NOTE | 2019-09-09 01:34 | NUR ---
Patient resting in bed with eyes shut; tolerating BIPAP well. No comcerns or complaints at this time.
--- NOTE | 2019-09-09 06:01 | NUR ---
electromechanical technician at bedside to greg am labs. Tolerating BIPAP well. VS stable will continue to monitor.
[2019-09-09 06:12] LABS: BASO % 0.3 % (0.0-2.0); EOS % 0.3 % (0-4.0); GRAN # 9.7 (1.4-6.5); GRAN % 81.4 % (42.2-75.2); HEMOGLOBIN 11.7 g/dl (13.5-18.0); LYMPH % 8.3 % (20.0-51.0); MEAN CELL VOLUME 99 fl (80.0-100.0); MEAN CORPUSCULAR HEMOGLOBIN 30 pg (27.0-31.0); MEAN CORPUSCULAR HGB CONC 30 g/dl (33.0-37.0); MEAN PLATELET VOLUME 12.1 fl (7.4-10.4); MONO # 1.1 (0.1-0.6); MONO % 9.4 % (1.7-9.3); PLATELET COUNT 154 K/mm3 (130-400); RED BLOOD COUNT 3.96 M/mm3 (4.20-5.60); REDCELL DISTRIBUTION WIDTH-CV 13.9 % (11.5-14.5)
[2019-09-09 06:32] LABS: ALBUMIN 2.9 gm/dL (3.5-5.0); BILIRUBIN,TOTAL 0.5 mg/dL (0.0-1.0); CALCIUM 7.9 mg/dL (8.4-10.2); CREATININE, serum 1.3 (0.66-1.25); MAGNESIUM 1.9 mg/dL (1.6-2.3); POTASSIUM 3.7 mmol/L (3.4-5.0); TOTAL PROTEIN 5.6 gm/dL (6.4-8.2)
[2019-09-09 11:34] LABS: ARTERIAL BLD GAS O2 SATURATION 95.1 % (92-100); ARTERIAL BLD GAS TCO2 CT 39.1; ARTERIAL BLOOD GAS BASE EXCESS 8.6 (-2-2); ARTERIAL BLOOD GAS HCO3 36.9 meq/L (22-26); ARTERIAL BLOOD GAS PO2 72.8 mmHg (80-100); ARTERIAL BLOOD GAS pH 7.34 (7.35-7.45)
[2019-09-09 11:35] LABS: ARTERIAL BLOOD GAS PCO2 70.5 mmHg (35-45)
--- NOTE | 2019-09-09 11:53 | NUR ---
Met briefly with pt and his in room after rounding. They are hoping to transfer to a longer term hospital like [facility] for more ongoing care. Their primary goals is to return home and to be able to maintain that with the support of their three local children and Laureen Pugh. Pt was only home about a week before returning to the hospital. would really like to avoid having outside people come into their house but is interested in physical therapy/occupational therapy and "wants the very best care for her ". I will try to contact her later today as she is leaving now with a friend.
--- NOTE | 2019-09-09 14:48 | NUR ---
has not yet returned to hospital when I dropped by to talk. Will try to catch up with her tomorrow.
--- NOTE | 2019-09-09 19:10 | NUR ---
Bedside report received from KUN Willoughby . Patient care transfered.
--- NOTE | 2019-09-09 21:20 | NUR ---
Assisted with josselin-care and repositioning. No complaints at time.
[2019-09-10] VITALS (607 sets, daily range): BP systolic 91–124; BP diastolic 48–76; PULSE 54–64; TEMP 97.4–98; O2SAT 81–100
--- NOTE | 2019-09-10 00:15 | NUR ---
Patient resting in bed quietly at this time; tolerating Bipap well. Will continue to monitor.
[2019-09-10 06:18] LABS: BASO % 0.2 % (0.0-2.0); EOS % 0.4 % (0-4.0); GRAN # 7.2 (1.4-6.5); HEMATOCRIT 38.1 % (42.0-52.0); HEMOGLOBIN 11.6 g/dl (13.5-18.0); LYMPH # 1.2 (1.2-3.4); MEAN CELL VOLUME 98 fl (80.0-100.0); MEAN CORPUSCULAR HEMOGLOBIN 30 pg (27.0-31.0); MEAN CORPUSCULAR HGB CONC 30 g/dl (33.0-37.0); MEAN PLATELET VOLUME 12.3 fl (7.4-10.4); MONO # 0.9 (0.1-0.6); MONO % 9.1 % (1.7-9.3); PLATELET COUNT 159 K/mm3 (130-400); RED BLOOD COUNT 3.89 M/mm3 (4.20-5.60); REDCELL DISTRIBUTION WIDTH-CV 13.9 % (11.5-14.5)
[2019-09-10 06:30] LABS: ALBUMIN 2.8 gm/dL (3.5-5.0); BILIRUBIN,TOTAL 0.5 mg/dL (0.0-1.0); CALCIUM 7.8 mg/dL (8.4-10.2); PHOSPHOROUS 3.2 mg/dL (2.5-4.5); POTASSIUM 3.6 mmol/L (3.4-5.0); TOTAL PROTEIN 5.5 gm/dL (6.4-8.2)
--- NOTE | 2019-09-10 07:20 | NUR ---
Report given to KUN Mckeon. Patient care transfered.
--- NOTE | 2019-09-10 08:05 | NUR ---
SPOKE WITH DR JESSICA REGARDING PLAN OF CARE FOR PATIENT. PT HAD APPT FOR THIS COMING MONDAY WITH DR REEDER D/T HX OF BLADDER CA AND SCHEDULED SURGERY AT THE END OF SEPTEMBER. I CALLED DR REEDER'S OFFICE TO CANCEL PATIENT'S APPT AND TO INQUIRE WITH DR REEDER IF HE WOULD LIKE TO SEE PATIENT AT THE HOSPITAL. DR FRAZIER CALLED REGARDING ID CONSULT PER DR JESSICA'S REQUEST D/T PERSISTENT UTI AND DX OF PNA UPON ARRIVAL.
--- NOTE | 2019-09-10 10:07 | NUR ---
Talked with and youngest daughter this am. has DPOA-HC and Living Will for both pt and herself. They were done earlier but and pt report that nothing would be changed. Copies were placed on pt's chart of his DPOA-HC and Living Will, His Laureen Renae is his designated DPOA-HC with his three local children listed as secondary DPOA-HC. Family is hopeful that he will be able to go to an LTAC when I spoke with them although they are aware that his insurance declined this services with his last admission. Laureen Pugh is very emotional talking about the future, realizing that Tyler's health is very compromised but determined to continue his care at this point.
--- NOTE | 2019-09-10 13:30 | NUR ---
The patient is needing further care and a LTAC was recommended by physicians. In a prior hospitization the patient was presented with LTAC options and chose [facility] in . The patient and family were interested in pursing [facility] in [place] again. Leoncio from [facility] met with the family and ADVERTISING DESIGNER student provided the referral paperwork. Awaiting response. In case [facility] cannot accept. Physical therapy is recommending post acute rehab. ADVERTISING DESIGNER student provided Medicare.gov's list of IPRs and SNFs to the family. The first choice is IPR at [facility], second choice is [facility], and third choice is [facility]. The patient's signed the patient choice form, form placed in chart. ADVERTISING DESIGNER student contacted [facility] Director and faxed referrals to [facility] and [facility]. clinical services director will continue to follow.
--- NOTE | 2019-09-10 14:00 | NUR ---
SPOKE WITH KAYLYNN, DR REEDER'S NURSE, AFTER LEAVING HER A VOICEMAIL THIS AM. I RELAYED THAT DR JESSICA WANTED DR REEDER CALLED TO INQUIRE IF PROVIDER WOULD LIKE TO SEE PATIENT INPATIENT SINCE PT HAD APPT SET UP FOR THIS WEEK AND TO DISCUSS PLAN OF CARE PATIENT HAS SURGERY PLANNED FOR END OF SEPTEMBER HOWEVER PT CURRENTLY BEING SCREENED FOR [facility] UPON DISCHARGE. KAYLYNN STATES SHE WILL RELAY MESSAGE TO DR REEDER.
--- NOTE | 2019-09-10 14:57 | NUR ---
Initial visit; Patient and his thanked Field Assembly Supervisor for looking in on him and offering encouragement and prayer. Field Assembly Supervisor will follow up.
--- NOTE | 2019-09-10 18:18 | NUR ---
CONFIRMED WITH PATIENT AND THAT PATIENT DOES NOT HAVE A PEANUT ALLERGY. HE IS JUST UNABLE TO DIGEST WHOLE PEANUTS. PT ABLE TO EAT CREAMY PEANUT BUTTER.
--- NOTE | 2019-09-10 18:21 | NUR ---
PT RETURNED TO BED FROM RECLINER CHAIR. PT TOLERATED WELL. PT AMBULATED WITH ONE ASSIST TO STANDY AND THEN STANDBY WITH WALKER TO AMBULATE.
--- NOTE | 2019-09-10 20:00 | NUR ---
Assessment complete; patient reports having a good day and feeling "well". VS stable with no complaints at this time. Lower extremities continue to be edematous. Elevated on pillows for comfort.
[2019-09-11] VITALS (570 sets, daily range): BP systolic 101–139; BP diastolic 60–79; PULSE 53–75; TEMP 97.4–97.8; O2SAT 80–100
[2019-09-11 06:35] LABS: ARTERIAL BLD GAS O2 SATURATION 96.8 % (92-100); ARTERIAL BLD GAS TCO2 CT 41.5; ARTERIAL BLOOD GAS BASE EXCESS 11.3 (-2-2); ARTERIAL BLOOD GAS HCO3 39.3 meq/L (22-26); ARTERIAL BLOOD GAS PO2 82.6 mmHg (80-100); ARTERIAL BLOOD GAS pH 7.37 (7.35-7.45)
[2019-09-11 06:36] LABS: ARTERIAL BLOOD GAS PCO2 70.2 mmHg (35-45)
[2019-09-11 07:36] LABS: HEMATOCRIT 39.6 % (42.0-52.0); HEMOGLOBIN 11.8 g/dl (13.5-18.0); MEAN CELL VOLUME 97 fl (80.0-100.0); MEAN CORPUSCULAR HEMOGLOBIN 29 pg (27.0-31.0); MEAN CORPUSCULAR HGB CONC 30 g/dl (33.0-37.0); MEAN PLATELET VOLUME 11.7 fl (7.4-10.4); PLATELET COUNT 160 K/mm3 (130-400); RED BLOOD COUNT 4.08 M/mm3 (4.20-5.60); REDCELL DISTRIBUTION WIDTH-CV 13.7 % (11.5-14.5)
--- NOTE | 2019-09-11 07:45 | NUR ---
Report given to KUN Willoughby. Patient care transfered.
[2019-09-11 07:47] LABS: CALCIUM 7.8 mg/dL (8.4-10.2); CREATININE, serum 0.91 (0.66-1.25); POTASSIUM 3.6 mmol/L (3.4-5.0)
[2019-09-11 08:24] LABS: BAND 2 % (0-10); LYMPHOCYTE 15 % (20.0-51.0); NEUTROPHILS 71 % (42.0-75.2); PLATELET ESTIMATE NORMAL (NORMAL)
--- NOTE | 2019-09-11 08:45 | NUR ---
Estela from [facility] reports they cannot accept the patient for a skilled stay.
--- NOTE | 2019-09-11 09:00 | NUR ---
Working with OT, edema more prounounced this am than on previous shift, eating well, denies pain/nausea.
--- NOTE | 2019-09-11 09:56 | NUR ---
Follow-up visit; Patient thanked Data Conversion Operator for stopping by to check on him. Patient seems to be in good spirits. Data Conversion Operator will continue to look in on Don.
--- NOTE | 2019-09-11 11:55 | NUR ---
Santiago from [facility] reports they cannot accept the patient at this time. However, they can accept the patient if he is admitted under hospice care. director of food and nutrition services will continue to follow.
--- NOTE | 2019-09-11 13:25 | NUR ---
Leoncio with [facility] has placed a request to [facility] for [facility]. We await [facility]'s decision.
--- NOTE | 2019-09-11 19:15 | NUR ---
Bedside report received from KUN Church
--- NOTE | 2019-09-11 19:30 | NUR ---
Patient resting in bed watching TV. He is a+ox4. No complaints of pain. Vitals obtained and remain WNL. Assessment complete. Lungs are clear bilaterally in all powell with diminished bases. HR and rhythm are regular with normal S1 and S2 heard. Bowel sounds active x4. Peripheral pulses are palpable in all extremities. Patient has +2 edema to his trunk, +3 to BLE, +4 to his feet. Skin has not changed from previous exams. Patient has no further needs at this time. Will continue to monitor. Call light within reach.
[2019-09-12] VITALS (304 sets, daily range): BP systolic 115–144; BP diastolic 64–82; PULSE 56–73; TEMP 98.2–98.8; O2SAT 86–100
--- NOTE | 2019-09-12 | NUR ---
Patient asleep, awakens to name. No complaints of pain. vitals obtained and remain WNL. No further needs at this time. Will continue to monitor. Call light within reach.
--- NOTE | 2019-09-12 04:00 | NUR ---
Patient awake and stating that he is cold. Warm blankets provided. Vitals obtained and remain stable. Patient has no complaints of pain. No further needs at this time. Will continue to monitor. Call light within reach.
--- NOTE | 2019-09-12 07:15 | NUR ---
Bedside report given to KUN Corado
--- NOTE | 2019-09-12 08:00 | NUR ---
Shift assessment complete at this time. Plan of care reviewed at bedside with patient. Additional time taken to address any other needs or concerns. Vitals stable at this time. Pt denies pain or any other discomforts. Bed in low position, call light within reach, will continue to monitor.
[2019-09-12 08:39] LABS: BASO % 0.4 % (0.0-2.0); EOS # 0.1 (0.0-0.7); EOS % 1.8 % (0-4.0); GRAN # 5.7 (1.4-6.5); GRAN % 74.8 % (42.2-75.2); HEMATOCRIT 41.7 % (42.0-52.0); HEMOGLOBIN 12.5 g/dl (13.5-18.0); LYMPH % 13.2 % (20.0-51.0); MEAN CELL VOLUME 98 fl (80.0-100.0); MEAN CORPUSCULAR HEMOGLOBIN 29 pg (27.0-31.0); MEAN CORPUSCULAR HGB CONC 30 g/dl (33.0-37.0); MEAN PLATELET VOLUME 11.3 fl (7.4-10.4); MONO # 0.7 (0.1-0.6); MONO % 9.5 % (1.7-9.3); PLATELET COUNT 158 K/mm3 (130-400); RED BLOOD COUNT 4.27 M/mm3 (4.20-5.60); REDCELL DISTRIBUTION WIDTH-CV 13.8 % (11.5-14.5)
[2019-09-12 08:49] LABS: CALCIUM 7.9 mg/dL (8.4-10.2); CREATININE, serum 0.73 (0.66-1.25); POTASSIUM 3.7 mmol/L (3.4-5.0)
--- NOTE | 2019-09-12 11:40 | NUR ---
Leoncio from [facility] in reports [employer] authorized the patient for hospitalization pending bed availablity and weather concerns. BRADLEY LINEBACKER CREWMEMBER student informed the team and will inform the patient's family.
--- NOTE | 2019-09-12 12:00 | NUR ---
Pt resting comfortably in chair, denies pain or any other discomforts. Bed in low position, call light within reach, vitals stable at this time, will continue to monitor.
--- NOTE | 2019-09-12 13:39 | NUR ---
LOSS PREVENTION AND SAFETY MANAGER student faxed updates to Leoncio at [facility].
--- NOTE | 2019-09-12 15:37 | NUR ---
Leoncio from [facility] reports they will have a room for the patient on 09/13 and would like to set up transportation for 0900. The accepting physician is Dr. Castro. Leoncio would like Dr. Camarena to do a peer to peer with Dr. Seo . EVENT ORGANIZER student to fax discharge orders to and nurse to nurse . The room will be [facility]. EVENT ORGANIZER student informed PA and the patient's nurse. EVENT ORGANIZER student attemepted to contact the patient's , left message. director pharmacy services will continue to follow.
--- NOTE | 2019-09-12 16:35 | NUR ---
The patient's family is in agreeance with the plan. COOLER CONVEYOR LOADER student contacted [facility] to set-up transport for 0900 on 09/13. The team and family were in agreeance. COOLER CONVEYOR LOADER student presented the IM form to the patient and the patient's . The patient and the patient's understood. The patient's signed the form. The original was placed in the patient's chart and a copy was provided to the patient. central services tech will continue to follow.
--- NOTE | 2019-09-12 19:30 | NUR ---
Bedside report given to KUN Loyd.
[2019-09-13] VITALS (114 sets, daily range): BP systolic 131–150; BP diastolic 48–80; PULSE 57–65; TEMP 98; O2SAT 83–100
--- NOTE | 2019-09-13 08:00 | NUR ---
Shift assessment complete at this time. Plan of care reviewed at bedside with patient. Additional time taken to address any other needs or concerns. Vitals stable at this time. Pt denies pain or any other discomfort. Bed in low position, call light within reach, will continue to monitor.
--- NOTE | 2019-09-13 08:48 | NUR ---
The patient is to discharge today, 09/13 to [facility] in , room 133. The team and family are in agreeance for a 0900 transport, [facility] providing this service. KEY MAKER student faxed discharge orders to . Report # . There are no additional needs at this time.
== END 2019-09-13 09:20 | DRG 871 ==
LOC: COL.ER 18:51 → ICU 20:28 → IMCU 09-11 15:54
PROVIDERS: Emergency Medicine; Family Medicine; Internal Medicine Critical Care Medicine; Internal Medicine Pulmonary Disease; Physician Assistant; ADMIT Hospitalist
PROC: 5A09357 Assistance with Respiratory Ventilation, Less than 24 Consecutive Hours, Continuous Positive Airway Pressure (ICD-10-PCS; principal; 2019-09-12)
DX: A41.9 Sepsis, unspecified organism (principal); J96.21 Acute and chronic respiratory failure with hypoxia; J18.9 Pneumonia, unspecified organism; J96.22 Acute and chronic respiratory failure with hypercapnia; E87.2 Acidosis; N17.9 Acute kidney failure, unspecified; N39.0 Urinary tract infection, site not specified; R65.10 Systemic inflammatory response syndrome (SIRS) of non-infectious origin without acute organ dysfunction; Z66 Do not resuscitate; E78.5 Hyperlipidemia, unspecified; J44.9 Chronic obstructive pulmonary disease, unspecified; K21.9 Gastro-esophageal reflux disease without esophagitis; I27.20 Pulmonary hypertension, unspecified; I48.91 Unspecified atrial fibrillation; I25.10 Atherosclerotic heart disease of native coronary artery without angina pectoris; D72.829 Elevated white blood cell count, unspecified; T38.0X5A Adverse effect of glucocorticoids and synthetic analogues, initial encounter; R73.9 Hyperglycemia, unspecified; I95.1 Orthostatic hypotension; I34.0 Nonrheumatic mitral (valve) insufficiency; B95.62 Methicillin resistant Staphylococcus aureus infection as the cause of diseases classified elsewhere; I50.9 Heart failure, unspecified; Z95.1 Presence of aortocoronary bypass graft; Z99.81 Dependence on supplemental oxygen; Z09 Encounter for follow-up examination after completed treatment for conditions other than malignant neoplasm; Z95.818 Presence of other cardiac implants and grafts; Z90.79 Acquired absence of other genital organ(s); Z79.82 Long term (current) use of aspirin; Z79.51 Long term (current) use of inhaled steroids; Z87.891 Personal history of nicotine dependence; Z88.2 Allergy status to sulfonamides; Z88.8 Allergy status to other drugs, medicaments and biological substances; Z88.6 Allergy status to analgesic agent; Z88.1 Allergy status to other antibiotic agents; Z91.040 Latex allergy status; Z91.010 Allergy to peanuts; Z87.01 Personal history of pneumonia (recurrent); Z87.440 Personal history of urinary (tract) infections
CPT/HCPCS: 99223-AI; 99233-AI; 99239; J1650; J1940; J2543; J3370; J7030; J7050; J7512

== ENCOUNTER 2019-10-18 13:00 | Outpatient (RCR) | payer MEDICARE ==
[~2019-10-18 13:00] MED LIST changes: +PEPCID40 MG PO
[2019-10-19] MEDS ORDERED: FERROUSAL325 MG PO (18:22)
[2019-10-19] MEDS ORDERED: TYLENOL 325MG325 MG PO (18:26)
[2019-10-19] MEDS ORDERED: LIPITOR 10MG10 MG PO (18:26)
[2019-10-19] MEDS ORDERED: PREDNISONE20 MG PO ×2 (18:27)
[2019-10-21] MEDS ORDERED: IPRATROPIUM BROM3 M1 IH (12:03)
[2019-10-21] MEDS ORDERED: ROXANOL 20MG20 MG/ML SL (12:04)
[2019-10-21] MEDS ORDERED: ATIVAN 0.50.5 MG/TAB PO (12:07)
[2019-10-21] MEDS ORDERED: ZOFRAN ODT4 MG PO (12:08)
[2019-10-21] MEDS ORDERED: TRANSDERM-0.5 MG/21 TD (12:08)
== END 2019-11-14 13:47 | disposition home or self-care (01) ==
LOC: WSPT 13:00
DX: J44.9 Chronic obstructive pulmonary disease, unspecified (principal)

== ENCOUNTER 2019-10-19 16:26 | Inpatient (IN) | payer MEDICARE ==
[2019-10-19] VITALS (265 sets, daily range): BP systolic 158–170; BP diastolic 98–104; PULSE 92–98; TEMP 97–97.5; O2SAT 84–100
[~2019-10-19] VITALS: Ht 182.9 cm; Wt 100.9 kg
[2019-10-19 16:44] LABS: ARTERIAL BLD GAS O2 SATURATION 96.5 % (92-100); ARTERIAL BLD GAS TCO2 CT 48.6; ARTERIAL BLOOD GAS BASE EXCESS 11.4 (-2-2); ARTERIAL BLOOD GAS HCO3 44.9 meq/L (22-26); ARTERIAL BLOOD GAS PCO2 121.8 mmHg (35-45); ARTERIAL BLOOD GAS pH 7.18 (7.35-7.45)
[2019-10-19 16:54] LABS: BASO % 0.2 % (0.0-2.0); EOS % 0.1 % (0-4.0); GRAN # 10.5 (1.4-6.5); GRAN % 86.1 % (42.2-75.2); HEMATOCRIT 43.4 % (42.0-52.0); LYMPH # 0.9 (1.2-3.4); LYMPH % 7.2 % (20.0-51.0); MEAN CELL VOLUME 101 fl (80.0-100.0); MEAN CORPUSCULAR HEMOGLOBIN 30 pg (27.0-31.0); MEAN CORPUSCULAR HGB CONC 30 g/dl (33.0-37.0); MEAN PLATELET VOLUME 11.4 fl (7.4-10.4); MONO # 0.7 (0.1-0.6); MONO % 5.5 % (1.7-9.3); PLATELET COUNT 215 K/mm3 (130-400); RED BLOOD COUNT 4.28 M/mm3 (4.20-5.60); REDCELL DISTRIBUTION WIDTH-CV 15.6 % (11.5-14.5)
[2019-10-19 17:00] LABS: INR 0.9 (0.8-3.0); PROTHROMBIN TIME 10.3 SECONDS (9.7-12.8)
[2019-10-19 17:06] LABS: ALANINE AMINOTRANSFERASE 32 U/L (21-72); ALBUMIN 3.9 gm/dL (3.5-5.0); ALKALINE PHOSPHATASE 137 U/L (50-136); AST,SGOT 28 U/L (15-37); BILIRUBIN,TOTAL 0.7 mg/dL (0.0-1.0); BLOOD UREA NITROGEN 21 mg/dL (9-20); C-REACTIVE PROTEIN 2.1 mg/dL (0.0-0.9); CALCIUM 8.2 mg/dL (8.4-10.2); CHLORIDE 90 mmol/L (98-107); CREATININE, serum 0.89 (0.66-1.25); GLUCOSE 160 mg/dL (74-106); POTASSIUM 4.5 mmol/L (3.4-5.0); SODIUM 137 mmol/L (137-145); TOTAL PROTEIN 7.1 gm/dL (6.4-8.2)
[2019-10-19 17:11] LABS: CARBON DIOXIDE 40 mmol/L (22-30)
[2019-10-19 17:13] LABS: ANION GAP 7 mmol/L (7-16)
[2019-10-19 17:16] LABS: TROPONIN-I < 0.012 ng/mL (0.000-0.035)
[2019-10-19 18:06] LABS: COLLECTION METHOD CLEAN CATCH
[2019-10-19] MEDS ORDERED: FERROUSAL325 MG PO (18:22)
[2019-10-19] MEDS ORDERED: TYLENOL 325MG325 MG PO (18:26)
[2019-10-19] MEDS ORDERED: LIPITOR 10MG10 MG PO (18:26)
[2019-10-19] MEDS ORDERED: PREDNISONE20 MG PO ×2 (18:27)
[2019-10-19 18:41] LABS: AMORPHOUS CRYSTAL Present /uL; PH 6 (5-8); SQUAMOUS EPITHELIAL None Seen /hpf; URINE APPEARANCE Hazy; URINE BACTERIA None Seen /hpf; URINE BILIRUBIN Negative (NEGATIVE); URINE BLOOD 3+ (NEGATIVE); URINE COLOR Red; URINE GLUCOSE Negative (NEGATIVE); URINE KETONE Negative (NEGATIVE); URINE LEUKOCYTE ESTERASE Trace (NEGATIVE); URINE NITRATE Negative (NEGATIVE); URINE PROTEIN(semi-quant) 1+ (NEGATIVE); URINE RBC >50 /hpf; URINE UROBILINOGEN Negative (NEGATIVE)
[2019-10-19 19:17] LABS: ARTERIAL BLD GAS O2 SATURATION 96.3 % (92-100); ARTERIAL BLD GAS TCO2 CT 53.6; ARTERIAL BLOOD GAS BASE EXCESS 15.4 (-2-2); ARTERIAL BLOOD GAS HCO3 49.6 meq/L (22-26); ARTERIAL BLOOD GAS PO2 90.5 mmHg (80-100)
[2019-10-19 19:19] LABS: ARTERIAL BLOOD GAS PCO2 131.6 mmHg (35-45); ARTERIAL BLOOD GAS pH 7.19 (7.35-7.45)
--- NOTE | 2019-10-19 23:33 | NUR ---
Dr. Camarena discussed care options with family, including comfort cares. Family has decided to wait for other family to arrive before placing patient on comfort cares. and daughter at bedside currently with plans to stay the night. Patient is tolerating BIPAP well, occasionally complains mask is sliding into his mouth but dentures have been removed. Mask repositioned when patient asks. Cat draining to gravity. Red urine noted with occasional sediment/clots noted in tube, head of penis also bleeding off and on. Area cleansed and absorbtive dressing placed on leg to monitor amount of bleeding. Patient does have a history of bladder cancer. Patient denies pain or discomfort.
[2019-10-20] VITALS (729 sets, daily range): BP systolic 113–164; BP diastolic 61–94; PULSE 81–106; TEMP 97.7–98.3; O2SAT 74–100
--- NOTE | 2019-10-20 04:07 | NUR ---
While cleaning up patient, ECG patches were being removed and patient received a skin tear to his left forearm. Area was cleaned and dressed with xeroform, 4x4 gauze, and naheed. Bleeding was controlled with bandage and patient denied any pain or discomfort. Family at bedside throughout incident. Penile head also still bleeding at times and urine is red in color. Patient tolerated cleansing of his periarea and it appears active bleeding has stopped-will continue to monitor. Family also aware of blood in urine and around penile head.
--- NOTE | 2019-10-20 05:30 | NUR ---
Family called for assistance because patient was swinging arms and wasn't calming down. With family at bedside and reorienting patient to room and situation, patient did start to calm down. Patient was also given a warm blanket. Per family concerns of patient being uncormfortable a call was made to Dr. Ferrari for ativan. See orders.
--- NOTE | 2019-10-20 07:10 | NUR ---
Bedside report recieved from KUN Palacios. Patient sleeping at this time with BiPap in place, settings reviewed. Family at bedside and questions asked answered. Peripheral IV's x2 locked. Positive UO noted to huber catheter. Care assumed at this time.
--- NOTE | 2019-10-20 10:35 | NUR ---
Dr. Camarena rounds at this time. Discusses POC and prognosis with patient and family. Decision made by family at this time to discontinue all medications, labs, or tests. Will initiate comfort care order set following arrival of remainder of family. All questions asked are answered by MD. Care ongoing.
--- NOTE | 2019-10-20 17:03 | NUR ---
Patient transferred to medical room 306 via bed. Belongings sent with. KUN Venegas present and assumes cares at this time.
--- NOTE | 2019-10-20 17:31 | NUR ---
Patient arrived to room 306 from ICU at this time, he is alert/oriented, he is on Comfort care orders only / with plans for hospice transfer possibly tommorow, he denies any pain or discomfort at this time and is in not acute distress, many family members present, they deny needs at this time
--- NOTE | 2019-10-20 20:45 | NUR ---
Shift assessment complete. Pt resting in bed, awake, a&o, cooperative c cares. Mult family at bedside. Pt c/o abd pain, provided c PRN pain med. Pt denies any other c/o. O2 per NC. INT patent. Pt denies further needs. Call light in reach, bed alarm on. Will continue to monitor.
--- NOTE | 2019-10-20 21:15 | NUR ---
PATIENT DISCONTINUED TREATMENT [facility] THROUGH
--- NOTE | 2019-10-21 03:14 | NUR ---
TREATMENT NOT GIVEN - PATIENT SLEEPING
--- NOTE | 2019-10-21 08:00 | NUR ---
Pt assessment complete. Pt assisted back to the bed from bathroom, pt walking with a steady gait. He is A/O x4. His breathing is even and unlabored but patient is grunting. Pt reports some abdominal pain this am, refusing medication at this time. Reports he was passing gas this am, but no BM. Had a BM yesterday per patients report. Pt assisted with breakfast, denies any other needs at this time. Call light within reach.
--- NOTE | 2019-10-21 10:30 | NUR ---
The patient's family transitioned the patient to comfort measures yesterday, 10/20. The hospitalist notified CARIN that the patient and his family are wanting to go to the [facility]. CARIN then met with the patient, his (Laureen Pugh, ph#[phone]), and children. The patient and his confirm that they are wanting to go to the hospice house and would prefer to discharge to there today after 1300. CARIN contacted and faxed a referral to [facility]. CARIN awaiting their screen.
--- NOTE | 2019-10-21 11:00 | NUR ---
Initial visit; Tyler and family thanked Reading Interventionist for offering comfort and prayer. Patient seems spiritually and emotionally prepared to make the transition to [facility]osp[facility] House.
--- NOTE | 2019-10-21 11:23 | NUR ---
[facility] reports that they are able to accept the patient today and requested for a 1430 transport time. She states that the patient and prefer [facility] for their scripts. CARIN updated the patient and his . The patient is to discharge today, 10/21, to the [facility]. Transportation was arranged for 1430, via [facility]. CARIN informed the patient, his , family, and RN. They were all in agreeance to the time. SW to fax the patient's scripts to [facility]. No additional needs at this time.
--- NOTE | 2019-10-21 11:37 | NUR ---
Patient is in bed, family members visiting at this time.
--- NOTE | 2019-10-21 11:38 | NUR ---
Patient is alert and oriented.
[2019-10-21 11:53] VITALS: BP 113/61; PULSE 106; TEMP 97.7
--- NOTE | 2019-10-21 12:00 | NUR ---
Pt reported having trouble breathing while trying to eat. Discussed with patient and family that he should abstain from eating while he is not able to breath. Options for roxicodone or use of bipap discussed with both parties, they would like the patient to wear the bipap for a while at this time. I discussed with them options to use medications to help with the air hunger later as another option, they are agreeable. Will continue to monitor.
[2019-10-21] MEDS ORDERED: IPRATROPIUM BROM3 M1 IH (12:03)
[2019-10-21] MEDS ORDERED: ROXANOL 20MG20 MG/ML SL (12:04)
[2019-10-21] MEDS ORDERED: ATIVAN 0.50.5 MG/TAB PO (12:07)
[2019-10-21] MEDS ORDERED: TRANSDERM-0.5 MG/21 TD (12:08)
[2019-10-21] MEDS ORDERED: ZOFRAN ODT4 MG PO (12:08)
--- NOTE | 2019-10-21 12:57 | NUR ---
Pt not tolerating solid food well, ate ice cream without complications. visual education director in with patient at this time.
--- NOTE | 2019-10-21 13:57 | NUR ---
Palliative care nurse followed up with patient after being palced on comfort care and provided a comfort quilt. We had discussed care options with an earlier admission this year and now patient and his family have agreed that [facility] is where they wish to go. pt and family are tearful but allexpress that this is the right decision for them at this time.
--- NOTE | 2019-10-21 14:00 | NUR ---
Patient is alert and oriented. Patient is schedule to discharge as a hospice patient. Patient denies any pain. Family member visiting at bedside
--- NOTE | 2019-10-21 15:20 | NUR ---
PRN Ativan administered to patient prior to leaving for Hospice house. IV to hermelinda d/c'd at this time. Pt transferred via EMS at this time.
--- NOTE | 2019-10-21 15:40 | NUR ---
Follow-up visit; Looked in on family as they were about to leave for Hospice House where Tyler is being transferred.
== END 2019-10-21 16:08 | disposition hospice, inpatient (51) | DRG 189 ==
LOC: COL.ER 16:26 → ICU 17:31 → MEDICAL 17:31
PROVIDERS: Emergency Medicine; ADMIT Hospitalist
DX: J96.22 Acute and chronic respiratory failure with hypercapnia (principal); I50.31 Acute diastolic (congestive) heart failure; R65.10 Systemic inflammatory response syndrome (SIRS) of non-infectious origin without acute organ dysfunction; I48.20 Chronic atrial fibrillation, unspecified; J96.21 Acute and chronic respiratory failure with hypoxia; Z99.81 Dependence on supplemental oxygen; J44.9 Chronic obstructive pulmonary disease, unspecified; R73.9 Hyperglycemia, unspecified; Z51.5 Encounter for palliative care; Z66 Do not resuscitate; I25.10 Atherosclerotic heart disease of native coronary artery without angina pectoris; E78.5 Hyperlipidemia, unspecified; I95.1 Orthostatic hypotension; K21.9 Gastro-esophageal reflux disease without esophagitis; K44.9 Diaphragmatic hernia without obstruction or gangrene; R53.81 Other malaise; R60.1 Generalized edema; Z95.1 Presence of aortocoronary bypass graft; Z88.2 Allergy status to sulfonamides; Z88.8 Allergy status to other drugs, medicaments and biological substances; Z88.6 Allergy status to analgesic agent; Z88.1 Allergy status to other antibiotic agents; Z91.040 Latex allergy status
CPT/HCPCS: 99223-AI; 99233-AI; 99239; C9113; J0456; J0692; J1940; J2060; J2920; J7050